=== PATIENT | female | born 1990 | race Caucasian/White ===

== ENCOUNTER 2016-10-27 19:32 | Emergency (ER) | payer OTHER ==
[2016-10-27] MEDS ORDERED: Ondansetron 4 MG/2 ML SDV IVPUSH ONE ×2 (20:13→22:08)
[2016-10-27] MEDS ORDERED: Sodium Chloride 0.9% 1,000 ML IV SCH (20:15)
[2016-10-27 20:32] VITALS: BP 117/74
--- NOTE | 2016-10-27 23:11 | EDM.PDOC ---
ED HPI GENERAL MEDICAL PROBLEM - General Chief Complaint: Abdominal Pain Stated Complaint: ABDOMINAL PAIN Time Seen by Provider: 10/27/16 20:11 Source of Information: Reports: Patient History Limitations: Reports: No Limitations - History of Present Illness INITIAL COMMENTS - FREE TEXT/NARRATIVE: History of present illness: [This patient is been having abdominal pain for about a week. Sodium been essentially worked up for this with abdominal pelvic CT and discovered to have thickening of the transverse colon which could be consistent with colitis. She is on Terrell to control her pain and tells me that her doctor has set her up with an appointment with a specialist towards the end of the month and that was the soonest that they could get her in. She is here with continued pain stating that the Terrell is not controlling her pain. She has some nausea with this for which she takes Zofran really has any vomiting no constipation or diarrhea or dysuria. She's having no fevers or chills.] Review of systems: As per history of present illness and below otherwise all systems reviewed and negative. Past medical history: As per history of present illness and as reviewed below otherwise noncontributory. Surgical history: As per history of present illness and as reviewed below otherwise noncontributory. Social history: No reported history of drug or alcohol abuse. Family history: As per history of present illness and as reviewed below otherwise noncontributory. Physical exam: HEENT: Atraumatic, normocephalic, pupils reactive, negative for conjunctival pallor or scleral icterus, mucous membranes moist, throat clear, neck supple, nontender, trachea midline. Lungs: Clear to auscultation, breath sounds equal bilaterally, chest nontender. Heart: S1S2, regular, negative for clicks, rubs, or JVD. Abdomen: Soft, nondistended, she does have some tenderness across her upper abdomen with no peritoneal signs. The pain is not well localized. Pelvis: Stable nontender. Genitourinary: Deferred. Rectal: Deferred. Extremities: Atraumatic, negative for cords or calf pain. Neurovascular unremarkable. Neuro: Awake, alert, oriented. Cranial nerves II through XII unremarkable. Cerebellum unremarkable. Motor and sensory unremarkable throughout. Exam nonfocal. Diagnostics: [CBC complete dental panel UA CRP amylase and lipase are essentially unremarkable once again she's had an abdominal pelvic CT just few days ago demonstrating the finding I discussed in history of present illness] Therapeutics: [She's received IV fluids while here and IV Zofran] Impression: [Colitis is a working diagnosis] Plan: [Were going to go ahead and send her out on Percocet 1-2 by mouth every 3-4 hours when necessary #20 and she will try to call her primary care doctor's office tomorrow. She says that her doctors on medication but she'll try Dr. gerber and see if they could expedite the referral to the specialist. She lives alone and drove herself here and didn't have anybody that can drive her home so we were limited on what we could do for her] Definitive disposition and diagnosis as appropriate pending reevaluation and review of above. Abdominal Pain Score (Numeric/FACES): 9 - Related Data Allergies Allergy/AdvReac Type Severity Reaction Status Date / Time apple [Apple] Allergy Severe anaphylaxis Verified 01/08/14 17:19 levofloxacin Allergy Severe anaphylaxis Verified 01/08/14 17:19 midazolam Allergy Intermediate Anxiety Verified 01/08/14 17:19 amoxicillin [Amoxicillin] Allergy Mild Hives Verified 01/08/14 17:19 Penicillins Allergy Mild Hives Verified 01/08/14 17:19 Sulfa (Sulfonamide Allergy Mild Hives Verified 01/08/14 17:19 Antibiotics) adhesive Allergy Rash Verified 01/08/14 17:19 diphenhydramine HCl Allergy unknown Verified 01/08/14 17:19 [From Benadryl] vancomycin AdvReac Intermediate Redness Verified 01/08/14 17:19 Home Meds: Home Meds Albuterol [Proventil Neb Soln] 3 ml INH TID PRN 03/10/13 [History] Citalopram [Citalopram HBr] 40 mg PO DAILY 03/10/13 [History] EPINEPHrine [Epipen 2-Dylan] 0.3 mg IM ASDIRECTED 03/10/13 [History] Hydroxychloroquine [Plaquenil] 400 mg PO DAILY 03/10/13 [History] Ibuprofen [Motrin] 800 mg PO TID 03/10/13 [History] Ipratropium/Albuterol Sulfate [Duoneb 0.5 MG-3 MG/3 ML] 3 ml INH Q4HR PRN [History] Methylphenidate HCl [Ritalin] 5 mg PO DAILY 03/10/13 [History] Montelukast [Singulair] 10 mg PO DAILY 03/10/13 [History] NIFEdipine [Adalat cc] 30 mg PO DAILY PRN 03/10/13 [History] Ondansetron [Zofran Odt] 8 mg PO Q8HR PRN 03/10/13 [History] Rizatriptan [Maxalt] 10 mg PO ASDIRECTED PRN 03/10/13 [History] traZODone 50 - 100 mg PO BEDTIME 03/10/13 [History] hydrOXYzine Pamoate [Vistaril] 25 - 50 mg PO Q8H PRN 08/11/13 [History] Ca Cmb No.1/Vit D3/B-6/FA/B12 [Vitamin D3 1,000 Unit] 1 tab PO BEDTIME 01/08/14 [History] Levocetirizine Dihydrochloride [Xyzal] 1 tab PO DAILY 01/11/16 [History] Folic Acid 1 mg PO DAILY 10/27/16 [History] Methotrexate Sodium [Methotrexate] 13 mg PO WEEKLY 10/27/16 [History] Past Medical History HEENT History: Reports: Other (See Below) Other HEENT History: tubes in ears Respiratory History: Reports: Asthma Musculoskeletal History: Reports: Arthritis Neurological History: Reports: Brain Injury, Headaches, Chronic, Migraines Psychiatric History: Reports: Anxiety - Infectious Disease History Infectious Disease History: Reports: Chicken Pox - Past Surgical History Musculoskeletal Surgical History: Reports: Other (See Below) Other Musculoskeletal Surgeries/Procedures:: FOOT SURGERY CHRONIC FOOT PAIN. Dermatological Surgical History: Reports: Other (See Below) Social & Family History - Tobacco Use Smoking Status *Q: Never Smoker Second Hand Smoke Exposure: No - Caffeine Use Caffeine Use: Reports: Coffee, Soda - Alcohol Use Days Per Week of Alcohol Use: 0 Number of Drinks Per Day: 1 Total Drinks Per Week: 0 - Recreational Drug Use Recreational Drug Use: No ED ROS GENERAL - Review of Systems Review Of Systems: ROS reveals no pertinent complaints other than HPI. ED EXAM, GI/ABD - Physical Exam Exam: See Below Course - Vital Signs Last Recorded V/S: Last Vital Signs Temp 37.0 C 10/27/16 20:49 Pulse 95 10/27/16 20:49 Resp 16 10/27/16 20:49 BP 117/74 10/27/16 20:49 Pulse Ox 100 10/27/16 20:49 - Orders/Labs/Meds Orders: Active Orders 24 hr Category Date Time Status Sodium Chloride 0.9% [Normal Saline] 1,000 ml Med 10/27/16 20:15 Active IV ASDIRECTED Medication Orders Sodium Chloride (Normal Saline) 1,000 mls @ 500 mls/hr IV ASDIRECTED NITIN Last Admin: 10/27/16 20:47 Dose: 500 mls/hr Labs: Laboratory Tests 10/27/16 10/27/16 10/27/16 Range/Units 20:45 20:45 20:45 WBC 8.9 (4.5-11.0) K/uL RBC 4.26 (3.30-5.50) M/uL Hgb 13.8 (12.0-15.0) g/dL Hct 39.0 (36.0-48.0) % MCV 92 (80-98) fL MCH 32 H (27-31) pg MCHC 35 (32-36) % Plt Count 305 (150-400) K/uL Neut % (Auto) 57 (36-66) % Lymph % (Auto) 33 (24-44) % [place] % (Auto) 8 H (2-6) % Eos % (Auto) 1 L (2-4) % Baso % (Auto) 1 (0-1) % Sodium 138 L (140-148) mmol/L Potassium 4.0 (3.6-5.2) mmol/L Chloride 105 (100-108) mmol/L Carbon Dioxide 25 (21-32) mmol/L Anion Gap 12.0 (5.0-14.0) mmol/L BUN 16 D (7-18) mg/dL Creatinine 0.9 (0.6-1.0) mg/dL Est Cr Clr Drug Dosing 76.98 mL/min Estimated GFR (MDRD) > 60 (>60) Glucose 85 (74-106) mg/dL Lactic Acid 0.8 (0.4-2.0) mmol/L Calcium 8.9 (8.5-10.1) mg/dL Total Bilirubin 0.6 (0.2-1.0) mg/dL AST 15 (15-37) U/L ALT 24 (12-78) U/L Alkaline Phosphatase 68 (46-116) U/L C-Reactive Protein 0.75 H (0.0-0.3) mg/dL Total Protein 7.4 (6.4-8.2) g/dL Albumin 3.8 (3.4-5.0) g/dL Globulin 3.6 H (2.3-3.5) g/dL Albumin/Globulin Ratio 1.1 L (1.2-2.2) Amylase 43 (25-115) U/L Lipase 192 (73-393) U/L Urine Color Urine Appearance Urine pH (4.5-8.0) Ur Specific [place] (1.008-1.030) Urine Protein (NEGATIVE) mg/dL Urine Glucose (UA) (NEGATIVE) mg/dL Urine Ketones (NEGATIVE) mg/dL Urine Occult Blood (NEGATIVE) Urine Nitrite (NEGATIVE) Urine Bilirubin (NEGATIVE) Urine Urobilinogen (NORMAL) mg/dL Ur Leukocyte Esterase (NEGATIVE) Urine RBC (0-5) Urine WBC (0-5) Ur Epithelial Cells Amorphous Sediment Urine Bacteria Urine Mucus 10/27/16 Range/Units 21:00 WBC (4.5-11.0) K/uL RBC (3.30-5.50) M/uL Hgb (12.0-15.0) g/dL Hct (36.0-48.0) % MCV (80-98) fL MCH (27-31) pg MCHC (32-36) % Plt Count (150-400) K/uL Neut % (Auto) (36-66) % Lymph % (Auto) (24-44) % [place] % (Auto) (2-6) % Eos % (Auto) (2-4) % Baso % (Auto) (0-1) % Sodium (140-148) mmol/L Potassium (3.6-5.2) mmol/L Chloride (100-108) mmol/L Carbon Dioxide (21-32) mmol/L Anion Gap (5.0-14.0) mmol/L BUN (7-18) mg/dL Creatinine (0.6-1.0) mg/dL Est Cr Clr Drug Dosing mL/min Estimated GFR (MDRD) (>60) Glucose (74-106) mg/dL Lactic Acid (0.4-2.0) mmol/L Calcium (8.5-10.1) mg/dL Total Bilirubin (0.2-1.0) mg/dL AST (15-37) U/L ALT (12-78) U/L Alkaline Phosphatase (46-116) U/L C-Reactive Protein (0.0-0.3) mg/dL Total Protein (6.4-8.2) g/dL Albumin (3.4-5.0) g/dL Globulin (2.3-3.5) g/dL Albumin/Globulin Ratio (1.2-2.2) Amylase (25-115) U/L Lipase (73-393) U/L Urine Color Yellow Urine Appearance Slightly cloudy Urine pH 6.0 (4.5-8.0) Ur Specific [place] 1.020 (1.008-1.030) Urine Protein Negative (NEGATIVE) mg/dL Urine Glucose (UA) Normal (NEGATIVE) mg/dL Urine Ketones Negative (NEGATIVE) mg/dL Urine Occult Blood Negative (NEGATIVE) Urine Nitrite Negative (NEGATIVE) Urine Bilirubin Negative (NEGATIVE) Urine Urobilinogen Normal (NORMAL) mg/dL Ur Leukocyte Esterase Negative (NEGATIVE) Urine RBC 0-5 (0-5) Urine WBC 0-5 (0-5) Ur Epithelial Cells Many Amorphous Sediment Not seen Urine Bacteria Moderate Urine Mucus Few Meds: Medications Generic Name Dose Route Start Last Admin Trade Name Freq PRN Reason Stop Dose Admin Sodium Chloride 1,000 mls @ 500 mls/hr 10/27/16 20:15 10/27/16 20:47 Normal Saline IV 500 mls/hr ASDIRECTED NITIN Administration Discontinued Medications Generic Name Dose Route Start Last Admin Trade Name Freq PRN Reason Stop Dose Admin Ondansetron HCl 4 mg 10/27/16 20:13 10/27/16 20:46 Zofran IVPUSH 10/27/16 20:14 4 mg ONETIME ONE Administration Ondansetron HCl 4 mg 10/27/16 22:08 10/27/16 22:34 Zofran IVPUSH 10/27/16 22:09 4 mg ONETIME ONE Administration Departure - Departure Time of Disposition: 23:09 Disposition: Home, Self-Care 01 Condition: Fair Clinical Impression: Colitis Abdominal pain Qualifiers: Abdominal location: upper abdomen, unspecified Qualified Code(s): R10.10 - Upper abdominal pain, unspecified - Discharge Information Forms: ED Department Discharge Additional Instructions: As we discussed call the clinic that your doctor works in and try to talk to your doctor's nurse to see if they can expedite the referral to the specialist. If your doctor's nurse is not in perhaps you could just asked to speak to the nursing tool supervisor for the clinic to see if she can help you. - My Orders Last 24 Hours: My Active Orders 10/27/16 20:15 Sodium Chloride 0.9% [Normal Saline] 1,000 ml IV ASDIRECTED - Assessment/Plan Last 24 Hours: My Active Orders 10/27/16 20:15 Sodium Chloride 0.9% [Normal Saline] 1,000 ml IV ASDIRECTED
== END 2016-10-27 23:30 | disposition home or self-care (01) ==
LOC: JP.ED 19:32
DX: K52.9 Noninfective gastroenteritis and colitis, unspecified (principal); J45.909 Unspecified asthma, uncomplicated; F41.9 Anxiety disorder, unspecified; G89.29 Other chronic pain; Z98.890 Other specified postprocedural states; Z79.899 Other long term (current) drug therapy; Z91.09 Other allergy status, other than to drugs and biological substances; Z88.1 Allergy status to other antibiotic agents; Z88.0 Allergy status to penicillin; Z88.2 Allergy status to sulfonamides; Z88.8 Allergy status to other drugs, medicaments and biological substances
CPT/HCPCS: 36415; 80053; 81001; 82150; 83605; 83690; 85025; 86140; 96361; 96374; 96376; 99284; J1642; J2405; J7040

== ENCOUNTER 2016-11-07 18:57 | Emergency (ER) | payer OTHER ==
--- NOTE | 2016-11-07 20:18 | EDM.PDOC ---
ED HPI GENERAL MEDICAL PROBLEM - General Chief Complaint: Abdominal Pain Stated Complaint: STOMACH PAIN/BLACK STOOLS Time Seen by Provider: 11/07/16 20:15 Source of Information: Reports: Patient History Limitations: Reports: No Limitations - History of Present Illness INITIAL COMMENTS - FREE TEXT/NARRATIVE: pt has severe lower abdomnal pain. She has had a black tarry stool abut 5 pm. Onset: Today Duration: Hour(s):, Other ( black tarry stool. ) Associated Symptoms: Reports: Nausea/Vomiting, Other ( tarry stools. ) abdominal pain Pain Score (Numeric/FACES): 9 - Related Data Allergies Allergy/AdvReac Type Severity Reaction Status Date / Time apple [Apple] Allergy Severe anaphylaxis Verified 11/07/16 19:50 levofloxacin Allergy Severe anaphylaxis Verified 11/07/16 19:50 midazolam Allergy Intermediate Anxiety Verified 11/07/16 19:50 amoxicillin [Amoxicillin] Allergy Mild Hives Verified 11/07/16 19:50 Penicillins Allergy Mild Hives Verified 11/07/16 19:50 Sulfa (Sulfonamide Allergy Mild Hives Verified 11/07/16 19:50 Antibiotics) adhesive Allergy Rash Verified 11/07/16 19:50 diphenhydramine HCl Allergy unknown Verified 11/07/16 19:50 [From Benadryl] vancomycin AdvReac Intermediate Redness Verified 11/07/16 19:50 Home Meds: Home Meds Albuterol [Proventil Neb Soln] 3 ml INH TID PRN 03/10/13 [History] Citalopram [Citalopram HBr] 40 mg PO DAILY 03/10/13 [History] EPINEPHrine [Epipen 2-Dylan] 0.3 mg IM ASDIRECTED 03/10/13 [History] Hydroxychloroquine [Plaquenil] 400 mg PO DAILY 03/10/13 [History] Ibuprofen [Motrin] 800 mg PO TID 03/10/13 [History] Ipratropium/Albuterol Sulfate [Duoneb 0.5 MG-3 MG/3 ML] 3 ml INH Q4HR PRN [History] Montelukast [Singulair] 10 mg PO DAILY 03/10/13 [History] NIFEdipine [Adalat cc] 30 mg PO DAILY PRN 03/10/13 [History] Ondansetron [Zofran Odt] 8 mg PO Q8HR PRN 03/10/13 [History] Rizatriptan [Maxalt] 10 mg PO ASDIRECTED PRN 03/10/13 [History] traZODone 50 - 100 mg PO BEDTIME 03/10/13 [History] hydrOXYzine Pamoate [Vistaril] 25 - 50 mg PO Q8H PRN 08/11/13 [History] Ca Cmb No.1/Vit D3/B-6/FA/B12 [Vitamin D3 1,000 Unit] 1 tab PO BEDTIME 01/08/14 [History] Levocetirizine Dihydrochloride [Xyzal] 5 mg PO DAILY 01/11/16 [History] Folic Acid 1 mg PO DAILY 10/27/16 [History] Methotrexate Sodium [Methotrexate] 13 mg PO WEEKLY 10/27/16 [History] Acetaminophen/oxyCODONE [Percocet 325-5 MG] 1 tab PO ASDIRECTED PRN 11/07/16 [ History] Hydrocodone/Acetaminophen [[place]eforest 10-325 Tablet] 1 each PO BEDTIME 11/07/16 [ History] Past Medical History HEENT History: Reports: Other (See Below) Other HEENT History: tubes in ears Respiratory History: Reports: Asthma Musculoskeletal History: Reports: Arthritis Neurological History: Reports: Brain Injury, Headaches, Chronic, Migraines Psychiatric History: Reports: Anxiety - Infectious Disease History Infectious Disease History: Reports: Chicken Pox - Past Surgical History HEENT Surgical History: Reports: None Musculoskeletal Surgical History: Reports: Other (See Below) Other Musculoskeletal Surgeries/Procedures:: FOOT SURGERY CHRONIC FOOT PAIN. Social & Family History - Tobacco Use Smoking Status *Q: Never Smoker Second Hand Smoke Exposure: No - Caffeine Use Caffeine Use: Reports: Coffee, Soda - Alcohol Use Days Per Week of Alcohol Use: 0 Number of Drinks Per Day: 1 Total Drinks Per Week: 0 - Recreational Drug Use Recreational Drug Use: No ED ROS GENERAL - Review of Systems Review Of Systems: See Below Constitutional: Reports: No Symptoms HEENT: Reports: No Symptoms Respiratory: Reports: No Symptoms Cardiovascular: Reports: No Symptoms Endocrine: Reports: No Symptoms GI/Abdominal: Reports: Constipation, Nausea, Other ( rt sided abdomanal pain. ) : Reports: No Symptoms Musculoskeletal: Reports: No Symptoms Skin: Reports: No Symptoms ED EXAM, GI/ABD - Physical Exam Exam: See Below Text/Narrative:: Pt arrived with pain in her rt lower abdoman, She has been having hard small stools. She had a loose stool earlier that she thought was black. Exam Limited By: No Limitations General Appearance: Alert, Anxious, Mild Distress, Other (pt is nauseated. ) Ears: Normal TMs Nose: Normal Inspection Throat/Mouth: Normal Inspection Head: Atraumatic Neck: Normal Inspection Respiratory/Chest: No Respiratory Distress Cardiovascular: Regular Rate, Rhythm GI/Abdominal Exam: Tender, Other (pt has tenderness in the rt lower abdoman. ) (Female) Exam: Deferred Rectal (Female) Exam: Other (pt had hard brownish stool in the rectum. ) Back Exam: Normal Inspection Extremities: Normal Inspection Neurological: Alert, Oriented, Normal Cognition Psychiatric: Anxious Course - Vital Signs Last Recorded V/S: Last Vital Signs Temp 37.1 C 11/07/16 21:37 Pulse 82 11/07/16 21:37 Resp 16 11/07/16 21:37 BP 138/60 11/07/16 21:37 Pulse Ox 99 11/07/16 21:37 - Orders/Labs/Meds Labs: Laboratory Tests 11/07/16 11/07/16 11/07/16 Range/Units 20:27 20:27 20:27 WBC 7.0 (4.5-11.0) K/uL RBC 4.23 (3.30-5.50) M/uL Hgb 13.9 (12.0-15.0) g/dL Hct 38.6 (36.0-48.0) % MCV 91 (80-98) fL MCH 33 H (27-31) pg MCHC 36 (32-36) % Plt Count 273 (150-400) K/uL Neut % (Auto) 53 (36-66) % Lymph % (Auto) 38 (24-44) % [place] % (Auto) 7 H (2-6) % Eos % (Auto) 1 L (2-4) % Baso % (Auto) 1 (0-1) % Sodium 143 (140-148) mmol/L Potassium 3.8 (3.6-5.2) mmol/L Chloride 110 H (100-108) mmol/L Carbon Dioxide 22 (21-32) mmol/L Anion Gap 14.8 H (5.0-14.0) mmol/L BUN 11 (7-18) mg/dL Creatinine 0.9 (0.6-1.0) mg/dL Est Cr Clr Drug Dosing 76.98 mL/min Estimated GFR (MDRD) > 60 (>60) Glucose 84 (74-106) mg/dL Calcium 8.6 (8.5-10.1) mg/dL Total Bilirubin 0.6 (0.2-1.0) mg/dL AST 17 (15-37) U/L ALT 30 (12-78) U/L Alkaline Phosphatase 61 (46-116) U/L C-Reactive Protein 0.22 (0.0-0.3) mg/dL Total Protein 7.2 (6.4-8.2) g/dL Albumin 3.7 (3.4-5.0) g/dL Globulin 3.5 (2.3-3.5) g/dL Albumin/Globulin Ratio 1.1 L (1.2-2.2) Urine Color Urine Appearance Urine pH (4.5-8.0) Ur Specific [place] (1.008-1.030) Urine Protein (NEGATIVE) mg/dL Urine Glucose (UA) (NEGATIVE) mg/dL Urine Ketones (NEGATIVE) mg/dL Urine Occult Blood (NEGATIVE) Urine Nitrite (NEGATIVE) Urine Bilirubin (NEGATIVE) Urine Urobilinogen (NORMAL) mg/dL Ur Leukocyte Esterase (NEGATIVE) Urine RBC (0-5) Urine WBC (0-5) Ur Epithelial Cells Amorphous Sediment Urine Bacteria Urine Mucus 11/07/16 Range/Units 20:32 WBC (4.5-11.0) K/uL RBC (3.30-5.50) M/uL Hgb (12.0-15.0) g/dL Hct (36.0-48.0) % MCV (80-98) fL MCH (27-31) pg MCHC (32-36) % Plt Count (150-400) K/uL Neut % (Auto) (36-66) % Lymph % (Auto) (24-44) % [place] % (Auto) (2-6) % Eos % (Auto) (2-4) % Baso % (Auto) (0-1) % Sodium (140-148) mmol/L Potassium (3.6-5.2) mmol/L Chloride (100-108) mmol/L Carbon Dioxide (21-32) mmol/L Anion Gap (5.0-14.0) mmol/L BUN (7-18) mg/dL Creatinine (0.6-1.0) mg/dL Est Cr Clr Drug Dosing mL/min Estimated GFR (MDRD) (>60) Glucose (74-106) mg/dL Calcium (8.5-10.1) mg/dL Total Bilirubin (0.2-1.0) mg/dL AST (15-37) U/L ALT (12-78) U/L Alkaline Phosphatase (46-116) U/L C-Reactive Protein (0.0-0.3) mg/dL Total Protein (6.4-8.2) g/dL Albumin (3.4-5.0) g/dL Globulin (2.3-3.5) g/dL Albumin/Globulin Ratio (1.2-2.2) Urine Color Yellow Urine Appearance Clear Urine pH 5.0 (4.5-8.0) Ur Specific [place] 1.025 (1.008-1.030) Urine Protein Negative (NEGATIVE) mg/dL Urine Glucose (UA) Normal (NEGATIVE) mg/dL Urine Ketones Negative (NEGATIVE) mg/dL Urine Occult Blood Negative (NEGATIVE) Urine Nitrite Negative (NEGATIVE) Urine Bilirubin Negative (NEGATIVE) Urine Urobilinogen Normal (NORMAL) mg/dL Ur Leukocyte Esterase Negative (NEGATIVE) Urine RBC 0-5 (0-5) Urine WBC 0-5 (0-5) Ur Epithelial Cells Moderate Amorphous Sediment Rare Urine Bacteria Few Urine Mucus Few Meds: Medications Discontinued Medications Generic Name Dose Route Start Last Admin Trade Name Joshq PRN Reason Stop Dose Admin Heparin Sodium (Porcine) 500 units 11/08/16 01:50 11/08/16 01:57 Heparin Lock Flush 100 Units/Ml FLUSH 11/08/16 01:51 500 units ASDIRECTED ONE Administration Sodium Chloride 1,000 mls @ 500 mls/hr 11/07/16 21:00 11/07/16 21:12 Normal Saline IV 500 mls/hr ASDIRECTED NITIN Administration Sodium Chloride 1,000 mls @ 500 mls/hr 11/07/16 23:45 11/07/16 23:53 Normal Saline IV 500 mls/hr ASDIRECTED NITIN Administration Sodium Chloride 85 mls @ 3 mls/sec 11/08/16 00:31 11/08/16 00:47 Normal Saline IV 11/08/16 00:32 3 mls/sec ONETIME ONE Administration Ibuprofen 600 mg 11/08/16 01:31 11/08/16 01:39 Motrin PO 11/08/16 01:32 600 mg ONETIME ONE Administration Iopamidol 150 ml 11/08/16 00:45 11/08/16 00:47 Isovue-300 (61%) IV 150 ml . DIRECTED NITIN Administration Lorazepam 0.25 mg 11/08/16 01:14 11/08/16 01:21 Ativan IVPUSH 11/08/16 01:15 0.25 mg ONETIME ONE Administration Magnesium Citrate 296 ml 11/07/16 21:28 11/07/16 21:51 Citrate Of Magnesia PO 11/07/16 21:29 296 ml ONETIME ONE Administration Ondansetron HCl 4 mg 11/07/16 20:59 11/07/16 21:12 Zofran IVPUSH 11/07/16 21:00 4 mg ONETIME ONE Administration Ondansetron HCl 4 mg 11/07/16 22:20 11/07/16 22:27 Zofran IVPUSH 11/07/16 22:21 4 mg ONETIME ONE Administration Prochlorperazine Edisylate 10 mg 11/08/16 00:10 11/08/16 00:16 Compazine IVPUSH 11/08/16 00:11 10 mg ONETIME ONE Administration Sodium Chloride 10 ml 11/08/16 00:31 11/08/16 00:47 Saline Flush FLUSH 10 ml ONETIME PRN Administration PER RADIOLOGY PROTOCOL - Re-Assessments/Exams Free Text/Narrative Re-Assessment/Exam: 11/08/16 01:34 pt had a cat scan of the abdoman which did not show sig thickening and did not show other abnormalities. 11/11/16 20:30 stool for occult blood was neg. Her cat showed evidence of constipation. She was given mag citrate and she was given a tap water enema. She had a large result. She had less pain after that. Departure - Departure Time of Disposition: 01:35 Disposition: Home, Self-Care 01 Condition: Fair Clinical Impression: Constipation, Recurrent lower abdominal pain - Discharge Information Instructions: Abdominal Pain, Adult, Constipation, Adult Referrals: Leah Agrawal PA [Primary Care Provider] - Forms: ED Department Discharge Care Plan Goals: cont same meds, keep appt in Wednesday, Use prunes and gummy fibers to keep stools regular, push fluiids.
[2016-11-07] MEDS ORDERED: Ondansetron 4 MG/2 ML SDV IVPUSH ONE ×2 (20:59→22:20)
[2016-11-07] MEDS ORDERED: Sodium Chloride 0.9% 1,000 ML IV SCH ×2 (21:00→23:45)
[2016-11-07] MEDS ORDERED: Magnesium Citrate Solution 296 ML Bottle PO ONE (21:28)
[2016-11-07 21:38] VITALS: BP 138/60
[2016-11-08] MEDS ORDERED: Prochlorperazine 10 MG/2 ML SDV IVPUSH ONE (00:10)
[2016-11-08] MEDS ORDERED: Sodium Chloride 0.9% 10 ML Syringe FLUSH PRN (00:31)
[2016-11-08] MEDS ORDERED: Iopamidol 612 MG/ML 150 ML Bottle IV SCH (00:45)
[2016-11-08] MEDS ORDERED: LORazepam 2 MG/ML MDV IVPUSH ONE (01:14)
[2016-11-08] MEDS ORDERED: Ibuprofen 600 MG Tab PO ONE (01:31)
--- NOTE | 2016-11-09 08:57 | CR ---
Abdomen Series w Chest 1V INDICATION: pain in abdomen. COMPARISON: 07/13/2012 FINDINGS: 5 views. No free air or abnormal air-fluid levels. No signs of bowel obstruction. No abno rmal calculi seen. IMPRESSION: Nothing acute.
== END 2016-11-08 02:02 | disposition home or self-care (01) ==
LOC: JP.ED 18:57
DX: K59.00 Constipation, unspecified (principal); J45.909 Unspecified asthma, uncomplicated; F41.9 Anxiety disorder, unspecified; M19.90 Unspecified osteoarthritis, unspecified site; Z98.890 Other specified postprocedural states; Z79.899 Other long term (current) drug therapy; Z91.018 Allergy to other foods; Z88.1 Allergy status to other antibiotic agents; Z88.2 Allergy status to sulfonamides; Z91.09 Other allergy status, other than to drugs and biological substances; Z88.8 Allergy status to other drugs, medicaments and biological substances
CPT/HCPCS: 36415; 74022; 74177; 80053; 81001; 82272; 85025; 86140; 96361; 96374; 96375; 96376; 99285; A9270; J0780; J1642; J2060; J2405; J7030; J7040; J7050

== ENCOUNTER 2016-12-11 19:34 | Emergency (ER) | payer OTHER ==
[2016-12-11] MEDS ORDERED: Albuterol 0.5% 5 MG/ML Neb Soln 20 ML Bottle NEB ONE (20:13)
[2016-12-11] MEDS ORDERED: Albuterol 0.083% 2.5 MG/3 ML Neb Soln NEB ONE (20:24)
--- NOTE | 2016-12-11 21:08 | EDM.PDOC ---
ED HPI GENERAL MEDICAL PROBLEM - General Chief Complaint: Asthma Stated Complaint: CHEST PAINS Source of Information: Reports: Patient History Limitations: Reports: No Limitations - History of Present Illness INITIAL COMMENTS - FREE TEXT/NARRATIVE: Patient complains of chest tightness and dyspnea for the last few hours, associated with a sore throat. She reports having a non-productive cough since y-day, without fever/chills. She requests a prescription for a MDI and a rapid strep test. She has a prior H/O asthma, but has never required admission. She has been treated with steroids in the past. She denies leg pain/swelling, trauma, prolonged immobilization. Onset: Today Location: Reports: Chest. Denies: Lower Extremity, Left, Lower Extremity, Right Throat Pain Score (Numeric/FACES): 1 - Related Data Allergies Allergy/AdvReac Type Severity Reaction Status Date / Time apple [Apple] Allergy Severe anaphylaxis Verified 11/07/16 19:50 levofloxacin Allergy Severe anaphylaxis Verified 11/07/16 19:50 midazolam Allergy Intermediate Anxiety Verified 11/07/16 19:50 amoxicillin [Amoxicillin] Allergy Mild Hives Verified 11/07/16 19:50 Penicillins Allergy Mild Hives Verified 11/07/16 19:50 Sulfa (Sulfonamide Allergy Mild Hives Verified 11/07/16 19:50 Antibiotics) adhesive Allergy Rash Verified 11/07/16 19:50 diphenhydramine HCl Allergy unknown Verified 11/07/16 19:50 [From Benadryl] vancomycin AdvReac Intermediate Redness Verified 11/07/16 19:50 Home Meds: Home Meds Albuterol [Proventil Neb Soln] 3 ml INH TID PRN 03/10/13 [History] Citalopram [Citalopram HBr] 40 mg PO DAILY 03/10/13 [History] EPINEPHrine [Epipen 2-Dylan] 0.3 mg IM ASDIRECTED 03/10/13 [History] Hydroxychloroquine [Plaquenil] 400 mg PO DAILY 03/10/13 [History] Ibuprofen [Motrin] 800 mg PO TID 03/10/13 [History] Ipratropium/Albuterol Sulfate [Duoneb 0.5 MG-3 MG/3 ML] 3 ml INH Q4HR PRN [History] Montelukast [Singulair] 10 mg PO DAILY 03/10/13 [History] NIFEdipine [Adalat cc] 30 mg PO DAILY PRN 03/10/13 [History] Ondansetron [Zofran Odt] 8 mg PO Q8HR PRN 03/10/13 [History] Rizatriptan [Maxalt] 10 mg PO ASDIRECTED PRN 03/10/13 [History] traZODone 50 - 100 mg PO BEDTIME 03/10/13 [History] hydrOXYzine Pamoate [Vistaril] 25 - 50 mg PO Q8H PRN 08/11/13 [History] Ca Cmb No.1/Vit D3/B-6/FA/B12 [Vitamin D3 1,000 Unit] 1 tab PO BEDTIME 01/08/14 [History] Levocetirizine Dihydrochloride [Xyzal] 5 mg PO DAILY 01/11/16 [History] Folic Acid 1 mg PO DAILY 10/27/16 [History] Methotrexate Sodium [Methotrexate] 13 mg PO WEEKLY 10/27/16 [History] Acetaminophen/oxyCODONE [Percocet 325-5 MG] 1 tab PO ASDIRECTED PRN 11/07/16 [ History] Hydrocodone/Acetaminophen [[place] 10-325 Tablet] 1 each PO BEDTIME 11/07/16 [ History] Past Medical History HEENT History: Reports: Other (See Below) Other HEENT History: tubes in ears Respiratory History: Reports: Asthma Musculoskeletal History: Reports: Arthritis Neurological History: Reports: Brain Injury, Headaches, Chronic, Migraines Psychiatric History: Reports: Anxiety - Infectious Disease History Infectious Disease History: Reports: Chicken Pox - Past Surgical History GI Surgical History: Reports: Colonoscopy Musculoskeletal Surgical History: Reports: Other (See Below) Other Musculoskeletal Surgeries/Procedures:: FOOT SURGERY CHRONIC FOOT PAIN. Social & Family History - Tobacco Use Smoking Status *Q: Unknown Ever Smoked Second Hand Smoke Exposure: No - Caffeine Use Caffeine Use: Reports: Coffee, Soda - Alcohol Use Days Per Week of Alcohol Use: 0 Number of Drinks Per Day: 1 Total Drinks Per Week: 0 - Recreational Drug Use Recreational Drug Use: No Course - Vital Signs Last Recorded V/S: Last Vital Signs Temp 36.7 C 12/11/16 20:00 Pulse 102 H 12/11/16 20:00 Resp 18 12/11/16 20:00 BP 126/73 12/11/16 20:00 Pulse Ox 99 12/11/16 20:00 - Orders/Labs/Meds Orders: Active Orders 24 hr Category Date Time Status EKG Documentation Completion [RC] ASDIRECTED Care 12/11/16 20:15 Active RT Aerosol Therapy [RC] ASDIRECTED Care 12/11/16 20:13 Active RT Aerosol Therapy [RC] ASDIRECTED Care 12/11/16 20:24 Active CULTURE STREP A CONFIRMATION [RM] Stat Lab 12/11/16 20:34 Results STREP SCRN A RAPID W CULT CONF [RM] Stat Lab 12/11/16 20:34 Results EKG 12 Lead [EK] Routine Ther 12/11/16 20:14 Ordered Meds: Medications Discontinued Medications Generic Name Dose Route Start Last Admin Trade Name Freq PRN Reason Stop Dose Admin Albuterol 10 mg 12/11/16 20:13 12/11/16 20:29 Proventil Neb Aminan [facility] 12/11/16 20:14 Not Given ONETIME ONE Albuterol 2.5 mg 12/11/16 20:24 12/11/16 20:29 Proventil Neb Soln NEB 12/11/16 20:25 2.5 mg ONETIME ONE Administration Dexamethasone 16 mg 12/11/16 21:15 Dexamethasone PO 12/11/16 21:16 ONETIME ONE Departure - Departure Time of Disposition: 21:06 Disposition: Home, Self-Care 01 Clinical Impression: Asthma, Acute pharyngitis - Discharge Information Instructions: Asthma, Adult, [id number], How to Use an Inhaler, [id number] Referrals: Leah Agrawal PA [Primary Care Provider] - Forms: ED Department Discharge Additional Instructions: See your regular doctor. Acetaminophen/Tylenol for pain. Use your inhaler as needed, but contact your physician or return to the emergency department if you need to use it more than every four hours. Return if shortness of breath worsens. - My Orders Last 24 Hours: My Active Orders 12/11/16 20:13 RT Aerosol Therapy [RC] ASDIRECTED 12/11/16 20:14 EKG 12 Lead [EK] Routine 12/11/16 20:15 EKG Documentation Completion [RC] ASDIRECTED 12/11/16 20:24 RT Aerosol Therapy [RC] ASDIRECTED 09/15/17 20:34 CULTURE STREP A CONFIRMATION [RM] Stat STREP SCRN A RAPID W CULT CONF [RM] Stat - Assessment/Plan Last 24 Hours: My Active Orders 12/11/16 20:13 RT Aerosol Therapy [RC] ASDIRECTED 12/11/16 20:14 EKG 12 Lead [EK] Routine 12/11/16 20:15 EKG Documentation Completion [RC] ASDIRECTED 12/11/16 20:24 RT Aerosol Therapy [RC] ASDIRECTED 12/11/16 20:34 CULTURE STREP A CONFIRMATION [RM] Stat STREP SCRN A RAPID W CULT CONF [RM] Stat Assessment:: Acute asthma attack. Given pharyngitis as concomitant sx, tx w/ dexamethasone PO in ED.
[2016-12-11] MEDS ORDERED: Dexamethasone 4 MG Tab PO ONE (21:15)
[2016-12-11] MEDS ORDERED: Dexamethasone 4 MG/ML SDV ONE (21:24)
[2016-12-11 21:33] VITALS: BP 117/80
== END 2016-12-11 21:39 | disposition home or self-care (01) ==
LOC: JP.ED 19:34 → EEVIPCON 19:34 → JP.ED 21:39
DX: J45.909 Unspecified asthma, uncomplicated (principal); J02.9 Acute pharyngitis, unspecified; F41.9 Anxiety disorder, unspecified; Z88.1 Allergy status to other antibiotic agents; Z88.0 Allergy status to penicillin; Z88.2 Allergy status to sulfonamides; Z88.8 Allergy status to other drugs, medicaments and biological substances; Z79.899 Other long term (current) drug therapy
CPT/HCPCS: 87081; 87430; 93005; 99285; J1100

== ENCOUNTER 2016-12-13 13:05 | Emergency (ER) | payer OTHER ==
[2016-12-13 13:18] VITALS: BP 140/95
[2016-12-13] MEDS ORDERED: Albuterol/Ipratropium 3.0-0.5 MG/3 ML Neb Soln NEB ONE (13:34)
--- NOTE | 2016-12-13 13:41 | EDM.PDOC ---
ED HPI GENERAL MEDICAL PROBLEM - General Chief Complaint: Respiratory Problem Stated Complaint: TROUBLES BREATHING Time Seen by Provider: 12/13/16 13:25 Source of Information: Reports: Patient History Limitations: Reports: No Limitations - History of Present Illness INITIAL COMMENTS - FREE TEXT/NARRATIVE: Suzy presents today with complaints of shortness of breath while at work. She states she was here Wednesday for an asthma attack, was given an inhaler and steroid and has not improved. She has used her inhaler as directed. Suzy states she is coughing frequently. She denies productive cough. She denies fever, chills, vomiting, or change in bowel and bladder problems. Headache Pain Score (Numeric/FACES): 3 - Related Data Allergies Allergy/AdvReac Type Severity Reaction Status Date / Time apple [Apple] Allergy Severe anaphylaxis Verified 11/07/16 19:50 levofloxacin Allergy Severe anaphylaxis Verified 11/07/16 19:50 midazolam Allergy Intermediate Anxiety Verified 11/07/16 19:50 amoxicillin [Amoxicillin] Allergy Mild Hives Verified 11/07/16 19:50 Penicillins Allergy Mild Hives Verified 11/07/16 19:50 Sulfa (Sulfonamide Allergy Mild Hives Verified 11/07/16 19:50 Antibiotics) adhesive Allergy Rash Verified 11/07/16 19:50 diphenhydramine HCl Allergy unknown Verified 11/07/16 19:50 [From Benadryl] vancomycin AdvReac Intermediate Redness Verified 11/07/16 19:50 Home Meds: Home Meds Albuterol [Proventil Neb Soln] 3 ml INH TID PRN 03/10/13 [History] Citalopram [Citalopram HBr] 40 mg PO DAILY 03/10/13 [History] EPINEPHrine [Epipen 2-Dylan] 0.3 mg IM ASDIRECTED 03/10/13 [History] Hydroxychloroquine [Plaquenil] 400 mg PO DAILY 03/10/13 [History] Ibuprofen [Motrin] 800 mg PO TID 03/10/13 [History] Ipratropium/Albuterol Sulfate [Duoneb 0.5 MG-3 MG/3 ML] 3 ml INH Q4HR PRN [History] Montelukast [Singulair] 10 mg PO DAILY 03/10/13 [History] NIFEdipine [Adalat cc] 30 mg PO DAILY PRN 03/10/13 [History] Ondansetron [Zofran Odt] 8 mg PO Q8HR PRN 03/10/13 [History] Rizatriptan [Maxalt] 10 mg PO ASDIRECTED PRN 03/10/13 [History] traZODone 50 - 100 mg PO BEDTIME 03/10/13 [History] hydrOXYzine Pamoate [Vistaril] 25 - 50 mg PO Q8H PRN 08/11/13 [History] Ca Cmb No.1/Vit D3/B-6/FA/B12 [Vitamin D3 1,000 Unit] 1 tab PO BEDTIME 01/08/14 [History] Levocetirizine Dihydrochloride [Xyzal] 5 mg PO DAILY 01/11/16 [History] Folic Acid 1 mg PO DAILY 10/27/16 [History] Methotrexate Sodium [Methotrexate] 13 mg PO WEEKLY 10/27/16 [History] Acetaminophen/oxyCODONE [Percocet 325-5 MG] 1 tab PO ASDIRECTED PRN 11/07/16 [ History] Hydrocodone/Acetaminophen [[place] 10-325 Tablet] 1 each PO BEDTIME 11/07/16 [ History] Past Medical History HEENT History: Reports: Other (See Below) Other HEENT History: tubes in ears Respiratory History: Reports: Asthma Musculoskeletal History: Reports: Arthritis Neurological History: Reports: Brain Injury, Headaches, Chronic, Migraines Psychiatric History: Reports: Anxiety - Infectious Disease History Infectious Disease History: Reports: Chicken Pox - Past Surgical History GI Surgical History: Reports: Colonoscopy Musculoskeletal Surgical History: Reports: Other (See Below) Other Musculoskeletal Surgeries/Procedures:: FOOT SURGERY CHRONIC FOOT PAIN. Dermatological Surgical History: Reports: Other (See Below) Social & Family History - Tobacco Use Smoking Status *Q: Never Smoker Second Hand Smoke Exposure: No - Caffeine Use Caffeine Use: Reports: Coffee, Energy Drinks, Soda - Alcohol Use Days Per Week of Alcohol Use: 0 Number of Drinks Per Day: 1 Total Drinks Per Week: 0 - Recreational Drug Use Recreational Drug Use: No ED ROS GENERAL - Review of Systems Review Of Systems: See Below Constitutional: Denies: Fever, Chills, Malaise, Weakness HEENT: Denies: Ear Discharge, Ear Pain, Nose Pain, Rhinitis, Sinus Problem, Throat Pain, Throat Swelling, Vertigo, Vision Change Respiratory: Reports: Shortness of Breath, Wheezing, Cough, Other (She denies productive cough and syncope. ). Denies: Pleuritic Chest Pain, Sputum, Hemoptysis Cardiovascular: Denies: Chest Pain, Blood Pressure Problem, Dyspnea on Exertion , Edema, Lightheadedness, Palpitations, Syncope Endocrine: Reports: No Symptoms GI/Abdominal: Reports: No Symptoms : Reports: No Symptoms Musculoskeletal: Reports: No Symptoms Skin: Reports: No Symptoms Neurological: Reports: No Symptoms Psychiatric: Reports: No Symptoms Hematologic/Lymphatic: Reports: No Symptoms Immunologic: Reports: No Symptoms ED EXAM, GENERAL - Physical Exam Exam: See Below General Appearance: Alert, WD/WN, No Apparent Distress Eye Exam: Bilateral Eye: EOMI, Normal Fundi, Normal Inspection, PERRL Ears: Normal External Exam, Normal Canal, Hearing Grossly Normal, Normal TMs Ear Exam: Bilateral Ear: Auricle Normal, Canal Normal, TM normal Nose: Normal Inspection, Normal Mucosa, Clear Rhinorrhea Throat/Mouth: Normal Inspection, Normal Lips, Normal Teeth, Normal Gums, Normal Oropharynx, Normal Voice, No Airway Compromise Head: Atraumatic, Normocephalic Neck: Normal Inspection, Supple, Non-Tender, Full Range of Motion Respiratory/Chest: No Respiratory Distress, Lungs Clear, No Accessory Muscle Use , Chest Non-Tender, Decreased Breath Sounds Cardiovascular: Normal Peripheral Pulses, Regular Rate, Rhythm, No Edema, No Murmur, No Rub Peripheral Pulses: 2+: Radial (L), Radial (R), Dorsalis Pedis (L), Dorsalis Pedis (R) GI/Abdominal: Normal Bowel Sounds, Soft, Non-Tender, No Distention, No Mass Back Exam: Normal Inspection, Full Range of Motion. No: CVA Tenderness (R), CVA Tenderness (L) Extremities: Normal Inspection, Normal Range of Motion, Non-Tender, No Pedal Edema, Normal Capillary Refill Neurological: Alert, Oriented, CN II-XII Intact, Normal Cognition, Normal Gait, No Motor/Sensory Deficits Psychiatric: Normal Affect, Normal Mood Skin Exam: Warm, Dry, Intact, Normal Color, No Rash Lymphatic: No Adenopathy Course - Vital Signs Last Recorded V/S: Last Vital Signs Temp 36.5 C 12/13/16 13:17 Pulse 88 12/13/16 13:17 Resp 18 12/13/16 13:17 BP 140/95 H 12/13/16 13:17 Pulse Ox 99 12/13/16 13:17 - Orders/Labs/Meds Orders: Active Orders 24 hr Category Date Time Status RT Aerosol Therapy [RC] ASDIRECTED Care 12/13/16 13:34 Active Chest 2V [CR] Stat Exams 12/13/16 13:43 Taken Meds: Medications Discontinued Medications Generic Name Dose Route Start Last Admin Trade Name [place] PRN Reason Stop Dose Admin Albuterol/Ipratropium 3 ml 12/13/16 13:34 12/13/16 13:38 Duoneb 3.0-0.5 Mg/3 Ml NEB 12/13/16 13:35 3 ml ONETIME ONE Administration - Radiology Interpretation Free Text/Narrative:: Chest x-ray completed, wet read with no acute findings. Radiologist read pending. Departure - Departure Time of Disposition: 14:33 Disposition: Home, Self-Care 01 Condition: Good Clinical Impression: Bronchitis - Discharge Information Instructions: Shortness of Breath, [id number] Referrals: Leah Agrawal PA [Primary Care Provider] - Forms: ED Department Discharge Additional Instructions: You are suffering from bronchitis. History of rheumatoid arthritis. Use the albuterol inhaler as directed. Take prednisone 40mg by mouth daily for 5 days. Take azithromycin 500mg by mouth today then 250mg by mouth once a day the next four days. Keep appointment with Kristin JACINTO this . Return for worsening, issues or concerns. - My Orders Last 24 Hours: My Active Orders 12/13/16 13:34 RT Aerosol Therapy [RC] ASDIRECTED 12/13/16 13:43 Chest 2V [CR] Stat - Assessment/Plan Last 24 Hours: My Active Orders 12/13/16 13:34 RT Aerosol Therapy [RC] ASDIRECTED 12/13/16 13:43 Chest 2V [CR] Stat Assessment:: Bronchitis Plan: You are suffering from bronchitis. History of rheumatoid arthritis. Use the albuterol inhaler as directed. Take prednisone 40mg by mouth daily for 5 days. Take azithromycin 500mg by mouth today then 250mg by mouth once a day the next four days. Keep appointment with Kristin JACINTO this . Return for worsening, issues or concerns.
--- NOTE | 2016-12-14 09:19 | CR ---
Chest 2V INDICATION: shortness of breath FINDINGS: Left subclavian Port-A-Cath with tip in the mid SVC. Shallow inspiration. Chest otherwise n egative.
== END 2016-12-13 14:51 | disposition home or self-care (01) ==
LOC: JP.ED 13:05
DX: J40 Bronchitis, not specified as acute or chronic (principal); M19.90 Unspecified osteoarthritis, unspecified site; Z98.890 Other specified postprocedural states; Z87.820 Personal history of traumatic brain injury; Z79.899 Other long term (current) drug therapy; Z88.0 Allergy status to penicillin; Z88.1 Allergy status to other antibiotic agents; Z88.2 Allergy status to sulfonamides; Z88.8 Allergy status to other drugs, medicaments and biological substances; Z91.048 Other nonmedicinal substance allergy status; Z91.018 Allergy to other foods
CPT/HCPCS: 71020; 94640; 99285; J7620

== ENCOUNTER 2017-01-20 17:10 | Emergency (ER) | payer OTHER ==
[2017-01-20 18:27] VITALS: BP 133/85
[2017-01-20] MEDS ORDERED: Prochlorperazine 5 MG in Sodium Chloride 0.9% 50 ML IV ONE (18:48)
[2017-01-20] MEDS ORDERED: Sodium Chloride 0.9% 1,000 ML IV SCH (19:00)
--- NOTE | 2017-01-20 19:20 | EDM.PDOC ---
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 All day yesterday and today she's had nausea multiple episodes of vomiting and continuing pain. While in the waiting room her pain wrap from the right lower quadrant around the right side into the right lower back. Had 3 loose stools yesterday, 3 formed stools today. Has not had any lightheadedness or fainting, was able to drive herself here although some discomfort with walking. No fever or chills No urinary symptoms Seen in emergency on October 27 with abdominal pain and again on November 07. She was also seen in the office at the end of September with abdominal pain. CT scan October 22 was suggestive of transverse colon colitis and on November 07 was suggestive of sigmoid colitis but findings were mild. Pain associated with this was more in the left upper quadrant. She's was referred to [facility] engineer in [place], her left lower quadrant pain has improved although it is still present but milder. She did phone them earlier today; they told her to get checked because her pain in the right side was new and might be something else. The [facility] office told her that colitis was likely better. She missed work yesterday and today. Pain is bad enough to make her cry at home. Never , she is on Depo-Provera Was on prochlorperazine for nausea from the g[facility], and this has been discontinued, she is not on pain medication, she has used ondansetron but it doesn't help her nausea. History of rheumatoid arthritis, on methotrexate She has a port because of difficult IV access in the past, but it's quite old and cannot be used for contrast Right Middle Abdominal Pain Score (Numeric/FACES): 9 - Related Data Allergies Allergy/AdvReac Type Severity Reaction Status Date / Time apple [Apple] Allergy Severe anaphylaxis Verified 01/20/17 18:28 levofloxacin Allergy Severe anaphylaxis Verified 01/20/17 18:28 midazolam Allergy Intermediate Anxiety Verified 01/20/17 18:28 amoxicillin [Amoxicillin] Allergy Mild Hives Verified 01/20/17 18:28 Penicillins Allergy Mild Hives Verified 01/20/17 18:28 Sulfa (Sulfonamide Allergy Mild Hives Verified 01/20/17 18:28 Antibiotics) adhesive Allergy Rash Verified 01/20/17 18:28 diphenhydramine HCl Allergy unknown Verified 01/20/17 18:28 [From Benadryl] peanut Allergy Abdominal Verified 01/20/17 18:28 Cramps vancomycin AdvReac Intermediate Redness Verified 01/20/17 18:28 Home Meds: Home Meds Albuterol [Proventil Neb Soln] 3 ml INH TID PRN 03/10/13 [History] Citalopram [Citalopram HBr] 40 mg PO DAILY 03/10/13 [History] EPINEPHrine [Epipen 2-Dylan] 0.3 mg IM ASDIRECTED 03/10/13 [History] Hydroxychloroquine [Plaquenil] 400 mg PO DAILY 03/10/13 [History] Ipratropium/Albuterol Sulfate [Duoneb 0.5 MG-3 MG/3 ML] 3 ml INH Q4HR PRN [History] Montelukast [Singulair] 10 mg PO DAILY 03/10/13 [History] NIFEdipine [Adalat cc] 30 mg PO DAILY PRN 03/10/13 [History] Ondansetron [Zofran Odt] 8 mg PO Q8HR PRN 03/10/13 [History] Rizatriptan [Maxalt] 10 mg PO ASDIRECTED PRN 03/10/13 [History] traZODone 50 - 100 mg PO BEDTIME 03/10/13 [History] hydrOXYzine Pamoate [Vistaril] 25 - 50 mg PO Q8H PRN 08/11/13 [History] Ca Cmb No.1/Vit D3/B-6/FA/B12 [Vitamin D3 1,000 Unit] 1 tab PO BEDTIME 01/08/14 [History] Levocetirizine Dihydrochloride [Xyzal] 5 mg PO DAILY 01/11/16 [History] Folic Acid 1 mg PO DAILY 10/27/16 [History] Methotrexate Sodium [Methotrexate] 13 mg PO WEEKLY 10/27/16 [History] Acetaminophen/oxyCODONE [Percocet 325-5 MG] 1 tab PO ASDIRECTED PRN 11/07/16 [ History] Hydrocodone/Acetaminophen [Hydrocodon-Acetaminophen 5-325] 1 each PO Q4H PRN #6 tablet 01/20/17 [Rx] Past Medical History HEENT History: Reports: Other (See Below) Other HEENT History: tubes in ears Respiratory History: Reports: Asthma Musculoskeletal History: Reports: Arthritis, RA Neurological History: Reports: Brain Injury, Headaches, Chronic, Migraines Psychiatric History: Reports: Anxiety - Infectious Disease History Infectious Disease History: Reports: Chicken Pox - Past Surgical History GI Surgical History: Reports: Colonoscopy Musculoskeletal Surgical History: Reports: Other (See Below) Other Musculoskeletal Surgeries/Procedures:: FOOT SURGERY CHRONIC FOOT PAIN. Social & Family History - Tobacco Use Smoking Status *Q: Never Smoker Second Hand Smoke Exposure: No - Caffeine Use Caffeine Use: Reports: Coffee, Soda - Alcohol Use Days Per Week of Alcohol Use: 0 Number of Drinks Per Day: 1 Total Drinks Per Week: 0 - Recreational Drug Use Recreational Drug Use: No ED ROS GENERAL - Review of Systems Review Of Systems: See Below Constitutional: Reports: Decreased Appetite. Denies: Fever, Chills, Diaphoresis , Weight Gain HEENT: Reports: No Symptoms Respiratory: Reports: No Symptoms Cardiovascular: Reports: No Symptoms GI/Abdominal: Reports: Abdominal Pain, Decreased Appetite, Nausea, Vomiting. Denies: Constipation, Diarrhea, Hematemesis, Hematochezia : Reports: No Symptoms Musculoskeletal: Reports: Back Pain (Right low back) Skin: Reports: No Symptoms Neurological: Reports: Headache (Mild), Other (Arthritis). Denies: Difficulty Walking, Gait Disturbance Psychiatric: Reports: No Symptoms Hematologic/Lymphatic: Reports: No Symptoms Immunologic: Reports: No Symptoms ED EXAM, GI/ABD - Physical Exam Exam: See Below Exam Limited By: No Limitations General Appearance: Alert, Anxious, Mild Distress Eyes: Bilateral: Normal Appearance, EOMI Ears: Normal External Exam Nose: Normal Inspection, Normal Mucosa Throat/Mouth: Normal Lips, Normal Gums, Other Head: Atraumatic (Dry mouth), Normocephalic Neck: Normal Inspection, Supple, Non-Tender Respiratory/Chest: No Respiratory Distress, Lungs Clear, Normal Breath Sounds, No Accessory Muscle Use Cardiovascular: Normal Peripheral Pulses, Regular Rate, Rhythm GI/Abdominal Exam: Normal Bowel Sounds, Soft, No Distention, Tender (Right lower quadrant with deep palpation, no guarding). No: Guarding, Rigid, Rebound Back Exam: Normal Inspection Extremities: Normal Inspection, Non-Tender Neurological: Alert, Oriented, Normal Cognition, No Motor/Sensory Deficits Psychiatric: Normal Affect, Normal Mood Skin Exam: Warm, Dry, Intact, Normal Color, No Rash Lymphatic: No Adenopathy Course - Vital Signs Last Recorded V/S: Last Vital Signs Temp 37.2 C 01/20/17 18:22 Pulse 92 01/20/17 18:22 Resp 20 01/20/17 18:22 BP 133/85 01/20/17 18:22 Pulse Ox 96 01/20/17 18:22 - Orders/Labs/Meds Orders: Active Orders 24 hr Category Date Time Status Peripheral IV Care [RC] . DIRECTED Care 01/20/17 18:48 Active Heparin Sodium [Heparin Lock Flush 100 Units/ML] Med 01/20/17 22:30 Active 500 units FLUSH ASDIRECTED PRN Sodium Chloride 0.9% [Normal Saline] 1,000 ml Med 01/20/17 19:00 Active IV ASDIRECTED Sodium Chloride 0.9% [Saline Flush] Med 01/20/17 18:47 Active 10 ml FLUSH ASDIRECTED PRN Peripheral IV Insertion Adult [OM.PC] Routine Oth 01/20/17 18:47 Ordered Medication Orders Heparin Sodium (Porcine) (Heparin Lock Flush 100 Units/Ml) 500 units FLUSH ASDIRECTED PRN PRN Reason: Other Last Admin: 01/20/17 22:55 Dose: 500 units Sodium Chloride (Normal Saline) 1,000 mls @ 500 mls/hr IV ASDIRECTED NITIN Last Admin: 01/20/17 20:00 Dose: 500 mls/hr Sodium Chloride (Saline Flush) 10 ml FLUSH ASDIRECTED PRN PRN Reason: Keep Vein Open Last Admin: 01/20/17 22:54 Dose: 10 ml Admin: 01/20/17 20:13 Dose: 10 ml Labs: Laboratory Tests 01/20/17 01/20/17 01/20/17 Range/Units 18:47 18:47 18:47 WBC 7.0 (4.5-11.0) K/uL RBC 3.91 (3.30-5.50) M/uL Hgb 12.4 (12.0-15.0) g/dL Hct 36.0 (36.0-48.0) % MCV 92 (80-98) fL MCH 32 H (27-31) pg MCHC 34 (32-36) % Plt Count 284 (150-400) K/uL Sodium 142 (140-148) mmol/L Potassium 3.8 (3.6-5.2) mmol/L Chloride 108 (100-108) mmol/L Carbon Dioxide 23 (21-32) mmol/L Anion Gap 10.9 (5.0-14.0) mmol/L BUN 13 (7-18) mg/dL Creatinine 0.9 (0.6-1.0) mg/dL Est Cr Clr Drug Dosing 76.98 mL/min Estimated GFR (MDRD) > 60 (>60) Glucose 94 (74-106) mg/dL Lactic Acid 1.0 (0.4-2.0) mmol/L Calcium 8.9 (8.5-10.1) mg/dL Total Bilirubin 0.5 (0.2-1.0) mg/dL AST 16 (15-37) U/L ALT 27 (12-78) U/L Alkaline Phosphatase 63 (46-116) U/L Total Protein 6.5 (6.4-8.2) g/dL Albumin 3.6 (3.4-5.0) g/dL Globulin 2.9 (2.3-3.5) g/dL Albumin/Globulin Ratio 1.2 (1.2-2.2) Lipase 218 (73-393) U/L Urine Color Urine Appearance Urine pH (4.5-8.0) Ur Specific [place] (1.008-1.030) Urine Protein (NEGATIVE) mg/dL Urine Glucose (UA) (NEGATIVE) mg/dL Urine Ketones (NEGATIVE) mg/dL Urine Occult Blood (NEGATIVE) Urine Nitrite (NEGATIVE) Urine Bilirubin (NEGATIVE) Urine Urobilinogen (NORMAL) mg/dL Ur Leukocyte Esterase (NEGATIVE) Urine RBC (0-5) Urine WBC (0-5) Ur Epithelial Cells Amorphous Sediment Urine Bacteria Urine Mucus 01/20/ Range/Units 19:15 WBC (4.5-11.0) K/uL RBC (3.30-5.50) M/uL Hgb (12.0-15.0) g/dL Hct (36.0-48.0) % MCV (80-98) fL MCH (27-31) pg MCHC (32-36) % Plt Count (150-400) K/uL Sodium (140-148) mmol/L Potassium (3.6-5.2) mmol/L Chloride (100-108) mmol/L Carbon Dioxide (21-32) mmol/L Anion Gap (5.0-14.0) mmol/L BUN (7-18) mg/dL Creatinine (0.6-1.0) mg/dL Est Cr Clr Drug Dosing mL/min Estimated GFR (MDRD) (>60) Glucose (74-106) mg/dL Lactic Acid (0.4-2.0) mmol/L Calcium (8.5-10.1) mg/dL Total Bilirubin (0.2-1.0) mg/dL AST (15-37) U/L ALT (12-78) U/L Alkaline Phosphatase (46-116) U/L Total Protein (6.4-8.2) g/dL Albumin (3.4-5.0) g/dL Globulin (2.3-3.5) g/dL Albumin/Globulin Ratio (1.2-2.2) Lipase (73-393) U/L Urine Color Yellow Urine Appearance Clear Urine pH 7.0 (4.5-8.0) Ur Specific [place] 1.015 (1.008-1.030) Urine Protein Negative (NEGATIVE) mg/dL Urine Glucose (UA) Normal (NEGATIVE) mg/dL Urine Ketones Negative (NEGATIVE) mg/dL Urine Occult Blood Negative (NEGATIVE) Urine Nitrite Negative (NEGATIVE) Urine Bilirubin Negative (NEGATIVE) Urine Urobilinogen Normal (NORMAL) mg/dL Ur Leukocyte Esterase Negative (NEGATIVE) Urine RBC 0-5 (0-5) Urine WBC 0-5 (0-5) Ur Epithelial Cells Moderate Amorphous Sediment Few Urine Bacteria Rare Urine Mucus Few Meds: Medications Generic Name Dose Route Start Last Admin Trade Name Freq PRN Reason Stop Dose Admin Heparin Sodium (Porcine) 500 units 01/20/17 22:30 01/20/17 22:55 Heparin Lock Flush 100 Units/Ml FLUSH 500 units ASDIRECTED PRN Administration Other Sodium Chloride 1,000 mls @ 500 mls/hr 01/20/17 19:00 01/20/17 20:00 Normal Saline IV 500 mls/hr ASDIRECTED NITIN Administration Sodium Chloride 10 ml 01/20/17 18:47 01/20/17 22:54 Saline Flush FLUSH 10 ml ASDIRECTED PRN Administration Keep Vein Open Discontinued Medications Generic Name Dose Route Start Last Admin Trade Name Prince PRN Reason Stop Dose Admin Heparin Sodium (Porcine) Confirm 01/20/17 22:29 01/20/17 22:52 Heparin Lock Flush 100 Units/Ml Administered 01/20/17 22:30 Not Given Dose 500 units .ROUTE .STK-MED ONE Prochlorperazine Edisylate 5 51 mls @ 150 mls/hr 01/20/17 18:48 01/20/17 20: 08 mg/ Sodium Chloride IV 01/20/17 19:08 150 mls/hr ONETIME ONE Administration Ketorolac Tromethamine 15 mg 01/20/17 20:38 01/20/17 21:16 Toradol IVPUSH 01/20/17 20:39 15 mg ONETIME ONE Administration - Re-Assessments/Exams Free Text/Narrative Re-Assessment/Exam: 01/20/17 19:22 26-year-old female with recent abdominal pain ascribed to colitis with new right lower quadrant abdominal pain with nausea and vomiting, onset approximately 48 hours ago. Intravenous saline, prochlorperazine 5 mg improved with the above but will need to miss a few more days of work Has ondansetron at home for nausea which sometimes helps Prescribed 6 tablets hydrocodone/acetaminophen for pain 01/20/17 22:56 Departure - Departure Time of Disposition: 22:07 Disposition: Home, Self-Care 01 Condition: Good Clinical Impression: Gastroenteritis Abdominal pain Qualifiers: Abdominal location: right lower quadrant Qualified Code(s): R10.31 - Right lower quadrant pain - Discharge Information Prescriptions: Hydrocodone/Acetaminophen [Hydrocodon-Acetaminophen 5-325] 1 each PO Q4H PRN #6 tablet PRN Reason: moderate to severe pain Instructions: Viral Gastroenteritis, Adult, [id number], Abdominal Pain, Adult , [id number] Referrals: Leah Agrawal PA [Primary Care Provider] - Forms: ED Department Discharge Additional Instructions: continue with the ondansetron as needed for nausea follow-up with your doctor in 2-3 days or after the weekend if you are not specially approved to get back to work You may need to return to emergency if symptoms worsen - My Orders Last 24 Hours: My Active Orders 01/20/17 18:47 Sodium Chloride 0.9% [Saline Flush] 10 ml FLUSH ASDIRECTED PRN Peripheral IV Insertion Adult [OM.PC] Routine 01/20/17 18:48 Peripheral IV Care [RC] . DIRECTED 01/20/17 19:00 Sodium Chloride 0.9% [Normal Saline] 1,000 ml IV ASDIRECTED 01/20/17 22:30 Heparin Sodium [Heparin Lock Flush 100 Units/ML] 500 units FLUSH ASDIRECTED PRN - Assessment/Plan Last 24 Hours: My Active Orders 01/20/17 18:47 Sodium Chloride 0.9% [Saline Flush] 10 ml FLUSH ASDIRECTED PRN Peripheral IV Insertion Adult [OM.PC] Routine 01/20/17 18:48 Peripheral IV Care [RC] . DIRECTED 01/20/17 19:00 Sodium Chloride 0.9% [Normal Saline] 1,000 ml IV ASDIRECTED 01/20/17 22:30 Heparin Sodium [Heparin Lock Flush 100 Units/ML] 500 units FLUSH ASDIRECTED PRN
[2017-01-20] MEDS: Sodium Chloride 0.9% 10 ML Syringe FLUSH PRN ×2 (20:13→22:54)
[2017-01-20] MEDS ORDERED: Ketorolac 30 MG/ML SDV IVPUSH ONE (20:38)
== END 2017-01-20 22:35 | disposition home or self-care (01) ==
LOC: JP.ED 17:10
DX: K52.9 Noninfective gastroenteritis and colitis, unspecified (principal); J45.909 Unspecified asthma, uncomplicated; Z88.0 Allergy status to penicillin; Z88.1 Allergy status to other antibiotic agents; Z91.018 Allergy to other foods; Z88.2 Allergy status to sulfonamides; Z88.8 Allergy status to other drugs, medicaments and biological substances; Z79.899 Other long term (current) drug therapy
CPT/HCPCS: 36415; 80053; 81001; 83605; 83690; 85027; 96361; 96365; 96375; 99284; C1751; J0780; J1642; J1885; J7040; J7050

== ENCOUNTER 2017-02-22 18:50 | Emergency (ER) | payer OTHER ==
[2017-02-22 19:18] VITALS: BP 166/94
[2017-02-22] MEDS ORDERED: Ketorolac 30 MG/ML SDV IM ONE (20:25)
--- NOTE | 2017-02-22 20:31 | EDM.PDOC ---
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 Since this morning started developing chills mild cough and in particular aches all over including her teeth denies and all her muscles which is highly unusual she reports. she looked up her symptoms on the computer and she is quite convinced that she has influenza. She did get influenza vaccine but she works in custodial and she is on methotrexate for rheumatoid arthritis. Regarding her abdominal pain, she had CT scan in September and then again in October, initially showing very mild signs of colitis, no evidence of inflammatory bowel disease or any surgical condition. She does have a port, from several years ago, no longer valid for contrast but used to administer medications because she has poor vascular access. She does have promethazine and ondansetron at home that she uses for nausea. As needed She has nausea today but no vomiting. She does report some stomach pains as well. No diarrhea. Abdominal Pain Score (Numeric/FACES): 8 - Related Data Allergies Allergy/AdvReac Type Severity Reaction Status Date / Time apple [Apple] Allergy Severe anaphylaxis Verified 02/22/17 19:18 levofloxacin Allergy Severe anaphylaxis Verified 02/22/17 19:18 midazolam Allergy Intermediate Anxiety Verified 02/22/17 19:18 amoxicillin [Amoxicillin] Allergy Mild Hives Verified 02/22/17 19:18 Penicillins Allergy Mild Hives Verified 02/22/17 19:18 Sulfa (Sulfonamide Allergy Mild Hives Verified 02/22/17 19:18 Antibiotics) adhesive Allergy Rash Verified 02/22/17 19:18 diphenhydramine HCl Allergy unknown Verified 02/22/17 19:18 [From Benadryl] peanut Allergy Abdominal Verified 02/22/17 19:18 Cramps vancomycin AdvReac Intermediate Redness Verified 02/22/17 19:18 Home Meds: Home Meds Albuterol [Proventil Neb Soln] 3 ml INH TID PRN 03/10/13 [History] Citalopram [Citalopram HBr] 40 mg PO DAILY 03/10/13 [History] EPINEPHrine [Epipen 2-Dylan] 0.3 mg IM ASDIRECTED 03/10/13 [History] Ipratropium/Albuterol Sulfate [Duoneb 0.5 MG-3 MG/3 ML] 3 ml INH Q4HR PRN [History] Montelukast [Singulair] 10 mg PO DAILY 03/10/13 [History] NIFEdipine [Adalat cc] 30 mg PO DAILY PRN 03/10/13 [History] Ondansetron [Zofran Odt] 8 mg PO Q8HR PRN 03/10/13 [History] Rizatriptan [Maxalt] 10 mg PO ASDIRECTED PRN 03/10/13 [History] traZODone 50 - 100 mg PO BEDTIME 03/10/13 [History] hydrOXYzine Pamoate [Vistaril] 25 - 50 mg PO Q8H PRN 08/11/13 [History] Ca Cmb No.1/Vit D3/B-6/FA/B12 [Vitamin D3 1,000 Unit] 1 tab PO BEDTIME 01/08/14 [History] Levocetirizine Dihydrochloride [Xyzal] 5 mg PO DAILY 01/11/16 [History] Folic Acid 1 mg PO DAILY 10/27/16 [History] Methotrexate Sodium [Methotrexate] 13 mg PO WEEKLY 10/27/16 [History] Hydrocodone/Acetaminophen [Hydrocodon-Acetaminophen 5-325] 1 each PO Q4H PRN #4 tablet 02/22/17 [Rx] Oseltamivir [Tamiflu] 75 mg PO BID #10 cap 02/22/17 [Rx] Past Medical History HEENT History: Reports: Allergic Rhinitis, Other (See Below) Other HEENT History: tubes in ears Cardiovascular History: Reports: Other (See Below) Other Cardiovascular History: Raynauds Respiratory History: Reports: Asthma Musculoskeletal History: Reports: Arthritis, RA Neurological History: Reports: Brain Injury, Concussion, Headaches, Chronic, Migraines Psychiatric History: Reports: Anxiety Endocrine/Metabolic History: Reports: Obesity/BMI 30+ - Infectious Disease History Infectious Disease History: Reports: Chicken Pox - Past Surgical History GI Surgical History: Reports: Colonoscopy Social & Family History - Tobacco Use Smoking Status *Q: Never Smoker Second Hand Smoke Exposure: No - Caffeine Use Caffeine Use: Reports: Coffee, Soda - Alcohol Use Days Per Week of Alcohol Use: 0 Number of Drinks Per Day: 1 Total Drinks Per Week: 0 - Recreational Drug Use Recreational Drug Use: No ED ROS GENERAL - Review of Systems Review Of Systems: See Below Constitutional: Reports: Chills, Fatigue. Denies: Fever HEENT: Reports: No Symptoms Respiratory: Reports: Cough. Denies: Shortness of Breath, Wheezing Cardiovascular: Denies: Chest Pain, Lightheadedness Endocrine: Reports: No Symptoms GI/Abdominal: Reports: Abdominal Pain, Nausea. Denies: Diarrhea, Vomiting : Reports: No Symptoms Musculoskeletal: Reports: Joint Pain, Muscle Pain. Denies: Joint Swelling Skin: Reports: No Symptoms Neurological: Reports: Headache. Denies: Seizure, Syncope, Trouble Speaking, Difficulty Walking Psychiatric: Reports: Anxiety Hematologic/Lymphatic: Reports: No Symptoms Immunologic: Reports: No Symptoms ED EXAM, GENERAL - Physical Exam Exam: See Below Exam Limited By: No Limitations General Appearance: Alert, Anxious, Mild Distress, Other (significantly overweight, no difficulty speaking or breathing, vital signs stable although she does have moderate elevated blood pressure) Eye Exam: Bilateral Eye: Normal Inspection Ears: Normal External Exam Nose: Normal Inspection, Normal Mucosa Throat/Mouth: Normal Inspection, Normal Voice Head: Atraumatic Neck: Normal Inspection, Supple Respiratory/Chest: No Respiratory Distress, No Accessory Muscle Use Cardiovascular: Normal Peripheral Pulses, Regular Rate, Rhythm GI/Abdominal: Normal Bowel Sounds, Soft, No Distention, Tender (nonfocal diffuse mild without guarding). No: Guarding, Rigid, Rebound Extremities: Normal Inspection, Non-Tender. No: Pedal Edema Neurological: Alert, Oriented, No Motor/Sensory Deficits Psychiatric: Anxious Skin Exam: Warm, Dry, Intact, Normal Color, No Rash Lymphatic: No Adenopathy Course - Vital Signs Last Recorded V/S: Last Vital Signs Temp 36.7 C 02/22/17 19:16 Pulse 99 02/22/17 19:16 Resp 20 02/22/17 19:16 BP 166/94 H 02/22/17 19:16 Pulse Ox 96 02/22/17 19:16 - Orders/Labs/Meds Meds: Medications Discontinued Medications Generic Name Dose Route Start Last Admin Trade Name Prince PRN Reason Stop Dose Admin Ketorolac Tromethamine 15 mg 02/22/17 20:25 02/22/17 20:36 Toradol IM 02/22/17 20:26 15 mg ONETIME ONE Administration - Re-Assessments/Exams Free Text/Narrative Re-Assessment/Exam: 02/22/17 21:37 27-year-old female who reports myalgias chills abdominal aching since this morning. Does have background of several visits to emergency for abdominal pain. Examination is reassuring, symptoms are disproportionate to findings I discussed with patient whether to do testing for influenza, she wants to go on influenza medication. I reported to her very limited benefit expected from the medication but it can help with symptoms if she truly has influenza. She was so insistent that she be treated for in view of the fact that she is on methotrexate and working in a custodial I did prescribe the standard dose of Tamiflu. In addition a note off work for 2 days, she was off work today In emergency room she received Toradol 15 mg IM for pain and she was prescribed 4 tablets of hydrocodone for her aches Departure - Departure Time of Disposition: 20:40 Disposition: Home, Self-Care 01 Condition: Good Clinical Impression: Influenza-like illness - Discharge Information Prescriptions: Hydrocodone/Acetaminophen [Hydrocodon-Acetaminophen 5-325] 1 each PO Q4H PRN #4 tablet PRN Reason: moderate pain Oseltamivir [Tamiflu] 75 mg PO BID #10 cap Instructions: Influenza, Adult, [id number] Referrals: Leah Agrawal PA [Primary Care Provider] - Forms: ED Department Discharge, ED Return to Work/School Form Additional Instructions: See your physician/clinic if not able to return to work
== END 2017-02-22 20:52 | disposition home or self-care (01) ==
LOC: JP.ED 18:50
DX: J11.1 Influenza due to unidentified influenza virus with other respiratory manifestations (principal); J45.909 Unspecified asthma, uncomplicated; F41.9 Anxiety disorder, unspecified; Z79.899 Other long term (current) drug therapy; Z88.0 Allergy status to penicillin; Z88.1 Allergy status to other antibiotic agents; Z88.2 Allergy status to sulfonamides; Z88.8 Allergy status to other drugs, medicaments and biological substances; Z91.010 Allergy to peanuts; Z91.018 Allergy to other foods; Z91.048 Other nonmedicinal substance allergy status
CPT/HCPCS: 96372; 99284; J1885

== ENCOUNTER 2017-06-29 11:08 | Emergency (ER) | payer SELFPAY ==
[2017-06-29 11:21] VITALS: BP 119/75
--- NOTE | 2017-06-29 11:49 | EDM.PDOC ---
ED HPI GENERAL MEDICAL PROBLEM - General Chief Complaint: Lower Extremity Injury/Pain Stated Complaint: RT FOOT INJURY Time Seen by Provider: 06/29/17 11:30 Source of Information: Reports: Patient History Limitations: Reports: No Limitations - History of Present Illness INITIAL COMMENTS - FREE TEXT/NARRATIVE: 27-year-old female in for recheck of a right foot injury. She was seen in the clinic yesterday after dropping a large frozen object on her foot. She was having difficulty bearing weight. An x-ray was done at the clinic which looked normal, but she was told that there was a possibility of a "small fracture" and placed in a walking boot. She went in for recheck today and was told that the x- ray was normal. She asked for something for pain and they told her if she wanted pain medication she had to come to the emergency room. She is tearful and hyper dramatic, which reviewing her clinic records is typical for the patient. Location: Reports: Lower Extremity, Right Severity: Moderate Right Feet Pain Score (Numeric/FACES): 8 - Related Data Allergies Allergy/AdvReac Type Severity Reaction Status Date / Time apple [Apple] Allergy Severe anaphylaxis Verified 02/22/17 19:18 levofloxacin Allergy Severe anaphylaxis Verified 02/22/17 19:18 midazolam Allergy Intermediate Anxiety Verified 02/22/17 19:18 amoxicillin [Amoxicillin] Allergy Mild Hives Verified 02/22/17 19:18 Penicillins Allergy Mild Hives Verified 02/22/17 19:18 Sulfa (Sulfonamide Allergy Mild Hives Verified 02/22/17 19:18 Antibiotics) adhesive Allergy Rash Verified 02/22/17 19:18 diphenhydramine HCl Allergy unknown Verified 02/22/17 19:18 [From Benadryl] peanut Allergy Abdominal Verified 02/22/17 19:18 Cramps vancomycin AdvReac Intermediate Redness Verified 02/22/17 19:18 Home Meds: Home Meds Albuterol [Proventil Neb Soln] 3 ml INH TID PRN 03/10/13 [History] Citalopram [Citalopram HBr] 40 mg PO DAILY 03/10/13 [History] EPINEPHrine [Epipen 2-Dylan] 0.3 mg IM ASDIRECTED 03/10/13 [History] Ipratropium/Albuterol Sulfate [Duoneb 0.5 MG-3 MG/3 ML] 3 ml INH Q4HR PRN [History] Montelukast [Singulair] 10 mg PO DAILY 03/10/13 [History] NIFEdipine [Adalat cc] 30 mg PO DAILY PRN 03/10/13 [History] Ondansetron [Zofran Odt] 8 mg PO Q8HR PRN 03/10/13 [History] Rizatriptan [Maxalt] 10 mg PO ASDIRECTED PRN 03/10/13 [History] traZODone 50 - 100 mg PO BEDTIME 03/10/13 [History] hydrOXYzine Pamoate [Vistaril] 25 - 50 mg PO Q8H PRN 08/11/13 [History] Ca Cmb No.1/Vit D3/B-6/FA/B12 [Vitamin D3 1,000 Unit] 1 tab PO BEDTIME 01/08/14 [History] Levocetirizine Dihydrochloride [Xyzal] 5 mg PO DAILY 01/11/16 [History] Folic Acid 1 mg PO DAILY 10/27/16 [History] Methotrexate Sodium [Methotrexate] 13 mg PO WEEKLY 10/27/16 [History] Hydrocodone/Acetaminophen [Hydrocodon-Acetaminophen 5-325] 1 each PO Q4H PRN #4 tablet 02/22/17 [Rx] DULoxetine [Cymbalta] 30 mg PO DAILY 06/29/17 [History] Past Medical History HEENT History: Reports: Allergic Rhinitis, Other (See Below) Other HEENT History: tubes in ears Cardiovascular History: Reports: Other (See Below) Other Cardiovascular History: Raynauds Respiratory History: Reports: Asthma Musculoskeletal History: Reports: Arthritis, RA Neurological History: Reports: Brain Injury, Concussion, Headaches, Chronic, Migraines Psychiatric History: Reports: Anxiety Endocrine/Metabolic History: Reports: Obesity/BMI 30+ - Infectious Disease History Infectious Disease History: Reports: Chicken Pox - Past Surgical History GI Surgical History: Reports: Colonoscopy Dermatological Surgical History: Reports: Other (See Below) Social & Family History - Tobacco Use Smoking Status *Q: Never Smoker Second Hand Smoke Exposure: No - Caffeine Use Caffeine Use: Reports: Coffee, Soda, Tea - Alcohol Use Days Per Week of Alcohol Use: 0 Number of Drinks Per Day: 1 Total Drinks Per Week: 0 - Recreational Drug Use Recreational Drug Use: No Review of Systems - Review of Systems Review Of Systems: See Below Constitutional: Denies: Fever Respiratory: Denies: Shortness of Breath Cardiovascular: Denies: Chest Pain GI/Abdominal: Reports: Other (She recently had some abdominal pain worked up at [facility], that has resolved). Denies: Abdominal Pain Skin: Reports: Bruising (There is some bruising on the top of the foot at the base of the toes) ED EXAM, GENERAL - Physical Exam Exam: See Below Exam Limited By: No Limitations General Appearance: Alert, Mild Distress (Very tearful, hyper dramatic) Respiratory/Chest: No Respiratory Distress Extremities: Other (Exam of the right foot shows no significant swelling but there is bruising on the top of the foot at the base of the second through fourth toes. No tenderness with palpation of the calcaneus or ankle.) Course - Vital Signs Last Recorded V/S: Last Vital Signs Temp 98.3 F 06/29/17 11:27 Pulse 87 06/29/17 11:27 Resp 18 06/29/17 11:27 BP 119/75 06/29/17 11:27 Pulse Ox 96 06/29/17 11:27 - Re-Assessments/Exams Free Text/Narrative Re-Assessment/Exam: 06/29/17 11:47 The boot was removed and an Cosmo wrap was applied around the foot. I recommended increasing activity as tolerated without the boot, she can still use crutches the next few days. I told her it was not a good idea to treat this with narcotic medications, but she continued to cry and acted like she was just overwhelmed with pain. I don't think she was acting, I think it's her personality. I reviewed the [facility], she had one prescription for Tylenol 3, 2 months ago, none since. She was given 15 Tylenol 3's to take as needed for extra pain control when trying to rest and informed that if she needs more than that she needs a podiatry consultation. Departure - Departure Time of Disposition: 12:00 Disposition: Home, Self-Care 01 Condition: Good Clinical Impression: Contusion, foot Qualifiers: Encounter type: initial encounter Laterality: right Qualified Code(s): S90.31XA - Contusion of right foot, initial encounter - Discharge Information Instructions: Foot Contusion, [id number] Referrals: Leah Agrawal PA [Primary Care Provider] - Forms: ED Department Discharge Care Plan Goals: Continue with ibuprofen and add Tylenol with Codeine as needed for extra pain control when trying to rest. Wrap for comfort and increase activity as tolerated , recheck in 5-7 days if not improving satisfactorily.
== END 2017-06-29 12:00 | disposition home or self-care (01) ==
LOC: JP.ED 11:08
DX: S90.31XA Contusion of right foot, initial encounter (principal); Z88.1 Allergy status to other antibiotic agents; Z88.0 Allergy status to penicillin; Z88.2 Allergy status to sulfonamides; Z91.018 Allergy to other foods; Z91.010 Allergy to peanuts; Z79.899 Other long term (current) drug therapy; W20.8XXA Other cause of strike by thrown, projected or falling object, initial encounter
CPT/HCPCS: 99283

== ENCOUNTER 2017-07-11 13:25 | Emergency (ER) | payer OTHER ==
[2017-07-11] MEDS ORDERED: Lactated Ringers 1,000 ML IV ONE (13:57)
[2017-07-11] MEDS ORDERED: Acetaminophen 500 MG Tab PO ONE (13:58)
[2017-07-11] MEDS ORDERED: Atropine/Diphenoxylate 0.025-2.5 MG Tab PO ONE (13:58)
[2017-07-11] MEDS ORDERED: Metoclopramide 10 MG/2 ML SDV IVPUSH ONE (13:58)
--- NOTE | 2017-07-11 14:02 | EDM.PDOC ---
ED HPI GENERAL MEDICAL PROBLEM - General Chief Complaint: Genitourinary Problem Stated Complaint: NAUSEA,VOMITTING Time Seen by Provider: 07/11/17 13:45 Source of Information: Reports: Patient, RN History Limitations: Reports: No Limitations - History of Present Illness INITIAL COMMENTS - FREE TEXT/NARRATIVE: 27 yo female presents with N/V/D since Wednesday. Works at a [employer] in [employer] [facility]. No bleeding. Thinks she has had a fever. Decreased urination. Onset: Gradual Onset Date: 07/09/17 Duration: Day(s): (2) Location: Reports: Abdomen, Generalized - Related Data Allergies Allergy/AdvReac Type Severity Reaction Status Date / Time apple [Apple] Allergy Severe anaphylaxis Verified 07/11/17 13:38 levofloxacin Allergy Severe anaphylaxis Verified 07/11/17 13:38 midazolam Allergy Intermediate Anxiety Verified 07/11/17 13:38 amoxicillin [Amoxicillin] Allergy Mild Hives Verified 07/11/17 13:38 Penicillins Allergy Mild Hives Verified 07/11/17 13:38 Sulfa (Sulfonamide Allergy Mild Hives Verified 07/11/17 13:38 Antibiotics) adhesive Allergy Rash Verified 07/11/17 13:38 diphenhydramine HCl Allergy unknown Verified 07/11/17 13:38 [From Benadryl] peanut Allergy Abdominal Verified 07/11/17 13:38 Cramps vancomycin AdvReac Intermediate Redness Verified 07/11/17 13:38 Home Meds: Home Meds Albuterol [Proventil Neb Soln] 3 ml INH TID PRN 03/10/13 [History] EPINEPHrine [Epipen 2-Dylan] 0.3 mg IM ASDIRECTED 03/10/13 [History] Ipratropium/Albuterol Sulfate [Duoneb 0.5 MG-3 MG/3 ML] 3 ml INH Q4HR PRN [History] Montelukast [Singulair] 10 mg PO DAILY 03/10/13 [History] NIFEdipine [Adalat cc] 30 mg PO DAILY PRN 03/10/13 [History] Ondansetron [Zofran Odt] 8 mg PO Q8HR PRN 03/10/13 [History] Rizatriptan [Maxalt] 10 mg PO ASDIRECTED PRN 03/10/13 [History] traZODone 50 - 100 mg PO BEDTIME 03/10/13 [History] hydrOXYzine Pamoate [Vistaril] 25 - 50 mg PO Q8H PRN 08/11/13 [History] Ca Cmb No.1/Vit D3/B-6/FA/B12 [Vitamin D3 1,000 Unit] 1 tab PO BEDTIME 01/08/14 [History] Levocetirizine Dihydrochloride [Xyzal] 5 mg PO DAILY 01/11/16 [History] Folic Acid 1 mg PO DAILY 10/27/16 [History] Methotrexate Sodium [Methotrexate] 13 mg PO WEEKLY 10/27/16 [History] Hydrocodone/Acetaminophen [Hydrocodon-Acetaminophen 5-325] 1 each PO Q4H PRN #4 tablet 02/22/17 [Rx] DULoxetine [Cymbalta] 30 mg PO DAILY 06/29/17 [History] Linaclotide [Linzess] 1 cap PO DAILY 07/11/17 [History] Past Medical History HEENT History: Reports: Allergic Rhinitis, Other (See Below) Other HEENT History: tubes in ears Cardiovascular History: Reports: Other (See Below) Other Cardiovascular History: Raynauds Respiratory History: Reports: Asthma Musculoskeletal History: Reports: Arthritis, RA Neurological History: Reports: Brain Injury, Concussion, Headaches, Chronic, Migraines Psychiatric History: Reports: Anxiety Endocrine/Metabolic History: Reports: Obesity/BMI 30+ - Infectious Disease History Infectious Disease History: Reports: Chicken Pox - Past Surgical History GI Surgical History: Reports: Colonoscopy Dermatological Surgical History: Reports: Other (See Below) Social & Family History - Tobacco Use Smoking Status *Q: Never Smoker Second Hand Smoke Exposure: No - Caffeine Use Caffeine Use: Reports: Coffee, Soda, Tea - Alcohol Use Days Per Week of Alcohol Use: 0 Number of Drinks Per Day: 1 Total Drinks Per Week: 0 - Recreational Drug Use Recreational Drug Use: No ED ROS GENERAL - Review of Systems Review Of Systems: See Below Constitutional: Reports: Fever, Decreased Appetite HEENT: Reports: No Symptoms Respiratory: Reports: No Symptoms Cardiovascular: Reports: No Symptoms Endocrine: Reports: No Symptoms GI/Abdominal: Reports: Abdominal Pain, Diarrhea, Nausea, Vomiting. Denies: Black Stool, Bloody Stool, Constipation, Distension, Flatus, Hematemesis, Hematochezia, Melena : Reports: No Symptoms Musculoskeletal: Reports: No Symptoms Skin: Reports: No Symptoms Neurological: Reports: No Symptoms ED EXAM, GI/ABD - Physical Exam Exam: See Below Exam Limited By: No Limitations General Appearance: Alert, WD/WN, No Apparent Distress, Obese Eyes: Bilateral: Normal Appearance Ears: Normal External Exam, Normal Canal, Hearing Grossly Normal, Normal TMs Nose: Normal Inspection, Normal Mucosa, No Blood Throat/Mouth: Normal Inspection, Normal Lips, Normal Oropharynx, Normal Voice, No Airway Compromise Head: Atraumatic, Normocephalic Neck: Normal Inspection, Supple, Non-Tender Respiratory/Chest: No Respiratory Distress, Lungs Clear, Normal Breath Sounds, No Accessory Muscle Use Cardiovascular: Regular Rate, Rhythm, No Edema GI/Abdominal Exam: Normal Bowel Sounds, Soft, No Distention, Tender (mild, diffuse). No: Distended, Guarding, Rigid, Rebound Back Exam: Normal Inspection. No: CVA Tenderness (R), CVA Tenderness (L) Extremities: Normal Inspection, Normal Range of Motion, Non-Tender, No Pedal Edema Neurological: Alert, Oriented, CN II-XII Intact, Normal Cognition, No Motor/ Sensory Deficits Psychiatric: Normal Affect, Normal Mood Skin Exam: Warm, Dry, Intact, Normal Color, No Rash Course - Vital Signs Last Recorded V/S: Last Vital Signs Temp 37.7 C 07/11/17 13:42 Pulse 83 07/11/17 15:21 Resp 18 07/11/17 15:21 BP 124/71 07/11/17 15:21 Pulse Ox 98 07/11/17 15:21 - Orders/Labs/Meds Orders: Active Orders 24 hr Category Date Time Status CLOSTRIDIUM DIFFICILE BY PCR [] Stat Lab 07/11/17 15:31 Ordered NS + KCl 20mEq/L [Normal Saline with 20 mEq KCl] 1,000 Med 07/11/17 15:30 Active ml IV ASDIRECTED Medication Orders Potassium Chloride/Sodium Chloride (Normal Saline With 20 Meq Kcl) 1,000 mls @ 1,000 mls/hr IV ASDIRECTED NITIN Last Admin: 07/11/17 15:41 Dose: 1,000 mls/hr Labs: Laboratory Tests 07/11/17 07/11/17 07/11/17 Range/Units 14:17 14:17 15:31 WBC 5.0 (4.5-11.0) K/uL RBC 4.60 (3.30-5.50) M/uL Hgb 14.2 (12.0-15.0) g/dL Hct 40.8 (36.0-48.0) % MCV 89 (80-98) fL MCH 31 (27-31) pg MCHC 35 (32-36) % Plt Count 226 (150-400) K/uL Sodium 142 (140-148) mmol/L Potassium 3.3 L (3.6-5.2) mmol/L Chloride 107 (100-108) mmol/L Carbon Dioxide 20 L (21-32) mmol/L Anion Gap 18.3 H (5.0-14.0) mmol/L BUN 15 (7-18) mg/dL Creatinine 1.0 (0.6-1.0) mg/dL Est Cr Clr Drug Dosing 68.67 mL/min Estimated GFR (MDRD) > 60 (>60) Glucose 80 (74-106) mg/dL Calcium 8.5 (8.5-10.1) mg/dL Magnesium 1.8 (1.8-2.4) mg/dL Meds: Medications Generic Name Dose Route Start Last Admin Trade Name Freq PRN Reason Stop Dose Admin Potassium Chloride/Sodium Chloride 1,000 mls @ 1,000 mls/hr 07/11/17 15:30 15:41 Normal Saline With 20 Meq Kcl IV 1,000 mls/hr ASDIRECTED NITIN Administration Discontinued Medications Generic Name Dose Route Start Last Admin Trade Name Freq PRN Reason Stop Dose Admin Acetaminophen 1,000 mg 07/11/17 13:58 07/11/17 14:21 Tylenol Extra Strength PO 07/11/17 13:59 1,000 mg ONETIME ONE Administration Bismuth Subsalicylate 524 mg 07/11/17 16:00 Pepto Bismol PO 07/11/17 16:01 ONETIME ONE Diphenoxylate HCl/Atropine 2 tab 07/11/17 13:58 07/11/17 14:21 Lomotil 0.025-2.5 Mg PO 07/11/17 13:59 2 tab ONETIME ONE Administration Lactated Ringer's 1,000 mls @ 1,000 mls/hr 07/11/17 13:57 07/11/17 14:21 Ringers, Lactated IV 07/11/17 14:56 1,000 mls/hr BOLUS ONE Administration Metoclopramide HCl 10 mg 07/11/17 13:58 07/11/17 14:21 Reglan IVPUSH 07/11/17 13:59 10 mg ONETIME ONE Administration Ondansetron HCl 4 mg 07/11/17 15:52 07/11/17 15:56 Zofran IVPUSH 07/11/17 15:53 4 mg ONETIME ONE Administration Potassium Chloride 40 meq 07/11/17 15:27 07/11/17 15:42 Klor-Con M20 PO 07/11/17 15:28 40 meq ONETIME ONE Administration Departure - Departure Time of Disposition: 17:30 Disposition: Home, Self-Care 01 Condition: Fair Clinical Impression: Viral gastroenteritis, Hypokalemia - Discharge Information Referrals: Leah Agrawal PA [Primary Care Provider] - Forms: ED Department Discharge - My Orders Last 24 Hours: My Active Orders 07/11/17 15:30 NS + KCl 20mEq/L [Normal Saline with 20 mEq KCl] 1,000 ml IV ASDIRECTED 07/11/17 15:31 CLOSTRIDIUM DIFFICILE BY PCR [RM] Stat - Assessment/Plan Last 24 Hours: My Active Orders 07/11/17 15:30 NS + KCl 20mEq/L [Normal Saline with 20 mEq KCl] 1,000 ml IV ASDIRECTED 07/11/17 15:31 CLOSTRIDIUM DIFFICILE BY PCR [RM] Stat
[2017-07-11 15:22] VITALS: BP 124/71
[2017-07-11] MEDS ORDERED: Potassium Chloride 20 MEQ Tab.ER PO ONE (15:27)
[2017-07-11] MEDS ORDERED: NS + KCl 20mEq/L 1,000 ML IV SCH (15:30)
[2017-07-11] MEDS ORDERED: Ondansetron 4 MG/2 ML SDV IVPUSH ONE (15:52)
[2017-07-11] MEDS ORDERED: Bismuth Subsalicylate 262 MG Tab.Chew PO ONE (16:00)
== END 2017-07-11 17:57 | disposition home or self-care (01) ==
LOC: JP.ED 13:25
DX: A08.4 Viral intestinal infection, unspecified (principal); E87.6 Hypokalemia; J45.909 Unspecified asthma, uncomplicated; F41.9 Anxiety disorder, unspecified; E66.9 Obesity, unspecified; Z88.1 Allergy status to other antibiotic agents; Z88.8 Allergy status to other drugs, medicaments and biological substances; Z88.2 Allergy status to sulfonamides; Z91.010 Allergy to peanuts; Z79.899 Other long term (current) drug therapy; Z68.42 Body mass index [BMI] 45.0-49.9, adult
CPT/HCPCS: 36415; 80048; 83735; 85027; 96361; 96374; 96375; 99284; A9270; J1642; J2405; J2765; J3480; J7120

== ENCOUNTER 2017-07-12 14:17 | Observation (INO) | payer OTHER ==
[2017-07-12] MEDS ORDERED: Sodium Chloride 0.9% 1,000 ML IV SCH ×3 (15:15→17:15)
--- NOTE | 2017-07-12 15:20 | EDM.PDOC ---
ED HPI GENERAL MEDICAL PROBLEM - General Chief Complaint: Gastrointestinal Problem Stated Complaint: NAUSA Time Seen by Provider: 07/12/17 15:11 Source of Information: Reports: Patient History Limitations: Reports: No Limitations - History of Present Illness INITIAL COMMENTS - FREE TEXT/NARRATIVE: pt arrived with a history of persistent diarrhea since Wednesday. She states it is not bloody. She goes about every 1/2hour. sHE IS HAVING ALOT OF CRAMPING. sHE IS NAUSEATED AND HAS VOMITED SOME. Onset: Other ( started Wednesday. ) Duration: Hour(s): Location: Reports: Abdomen Associated Symptoms: Reports: Nausea/Vomiting, Weakness (PT IS HAVING SEVERE DIARRHEA. ), Other - Related Data Allergies Allergy/AdvReac Type Severity Reaction Status Date / Time apple [Apple] Allergy Severe anaphylaxis Verified 07/12/17 14:37 levofloxacin Allergy Severe anaphylaxis Verified 07/12/17 14:37 midazolam Allergy Intermediate Anxiety Verified 07/12/17 14:37 amoxicillin [Amoxicillin] Allergy Mild Hives Verified 07/12/17 14:37 Penicillins Allergy Mild Hives Verified 07/12/17 14:37 Sulfa (Sulfonamide Allergy Mild Hives Verified 07/12/17 14:37 Antibiotics) adhesive Allergy Rash Verified 07/12/17 14:37 diphenhydramine HCl Allergy unknown Verified 07/12/17 14:37 [From Benadryl] peanut Allergy Abdominal Verified 07/12/17 14:37 Cramps vancomycin AdvReac Intermediate Redness Verified 07/12/17 14:37 Home Meds: Home Meds Albuterol [Proventil Neb Soln] 3 ml INH TID PRN 03/10/13 [History] EPINEPHrine [Epipen 2-Dylan] 0.3 mg IM ASDIRECTED 03/10/13 [History] Ipratropium/Albuterol Sulfate [Duoneb 0.5 MG-3 MG/3 ML] 3 ml INH Q4HR PRN [History] Montelukast [Singulair] 10 mg PO DAILY 03/10/13 [History] NIFEdipine [Adalat cc] 30 mg PO DAILY PRN 03/10/13 [History] Ondansetron [Zofran Odt] 8 mg PO Q8HR PRN 03/10/13 [History] Rizatriptan [Maxalt] 10 mg PO ASDIRECTED PRN 03/10/13 [History] traZODone 50 - 100 mg PO BEDTIME 03/10/13 [History] hydrOXYzine Pamoate [Vistaril] 25 - 50 mg PO Q8H PRN 08/11/13 [History] Ca Cmb No.1/Vit D3/B-6/FA/B12 [Vitamin D3 1,000 Unit] 1 tab PO BEDTIME 01/08/14 [History] Levocetirizine Dihydrochloride [Xyzal] 5 mg PO DAILY 01/11/16 [History] Folic Acid 1 mg PO DAILY 10/27/16 [History] Methotrexate Sodium [Methotrexate] 13 mg PO WEEKLY 10/27/16 [History] Hydrocodone/Acetaminophen [Hydrocodon-Acetaminophen 5-325] 1 each PO Q4H PRN #4 tablet 02/22/17 [Rx] DULoxetine [Cymbalta] 30 mg PO DAILY 06/29/17 [History] Linaclotide [Linzess] 1 cap PO DAILY 07/11/17 [History] Potassium Chloride 10 meq PO TID #14 cap.er 07/11/17 [Rx] Past Medical History HEENT History: Reports: Allergic Rhinitis, Other (See Below) Other HEENT History: tubes in ears Cardiovascular History: Reports: Other (See Below) Other Cardiovascular History: Raynauds Respiratory History: Reports: Asthma Musculoskeletal History: Reports: Arthritis, RA Neurological History: Reports: Brain Injury, Concussion, Headaches, Chronic, Migraines Psychiatric History: Reports: Anxiety Endocrine/Metabolic History: Reports: Obesity/BMI 30+ - Infectious Disease History Infectious Disease History: Reports: Chicken Pox - Past Surgical History GI Surgical History: Reports: Colonoscopy Social & Family History - Tobacco Use Smoking Status *Q: Never Smoker Second Hand Smoke Exposure: No - Caffeine Use Caffeine Use: Reports: Coffee, Soda, Tea - Alcohol Use Days Per Week of Alcohol Use: 0 Number of Drinks Per Day: 1 Total Drinks Per Week: 0 - Recreational Drug Use Recreational Drug Use: No ED ROS GENERAL - Review of Systems Review Of Systems: See Below Constitutional: Reports: No Symptoms HEENT: Reports: No Symptoms Respiratory: Reports: No Symptoms Cardiovascular: Reports: No Symptoms Endocrine: Reports: No Symptoms GI/Abdominal: Reports: Diarrhea, Nausea, Vomiting : Reports: No Symptoms Musculoskeletal: Reports: No Symptoms Skin: Reports: No Symptoms ED EXAM, GI/ABD - Physical Exam Exam: See Below Text/Narrative:: PT ARRIVED WITH SEVERE ABDOMANAL CRAMPING. Exam Limited By: No Limitations General Appearance: Alert, Moderate Distress Ears: Normal TMs Nose: Normal Inspection Throat/Mouth: Normal Inspection Head: Atraumatic Neck: Normal Inspection Respiratory/Chest: No Respiratory Distress Cardiovascular: Regular Rate, Rhythm GI/Abdominal Exam: Tender, Other (NPO GUARDING) Rectal (Female) Exam: Deferred Back Exam: Normal Inspection Extremities: Normal Inspection Course - Vital Signs Last Recorded V/S: Last Vital Signs Temp 36.9 C 07/12/17 16:52 Pulse 84 07/12/17 16:52 Resp 19 07/12/17 16:52 BP 121/67 07/12/17 16:52 Pulse Ox 99 07/12/17 16:52 - Orders/Labs/Meds Orders: Active Orders 24 hr Category Date Time Status CLOSTRIDIUM DIFFICILE BY PCR [] Stat Lab 07/12/17 15:51 Ordered CULTURE STOOL + SHIGATOX [] Stat Lab 07/12/17 16:34 Received UA W/MICROSCOPIC [URIN] Urgent Lab 07/12/17 15:42 Ordered Sodium Chloride 0.9% [Normal Saline] 1,000 ml Med 07/12/17 15:15 Active IV ASDIRECTED Sodium Chloride 0.9% [Normal Saline] 1,000 ml Med 07/12/17 16:30 Active IV ASDIRECTED Medication Orders Sodium Chloride (Normal Saline) 1,000 mls @ 999 mls/hr IV ASDIRECTED NITIN Last Admin: 07/12/17 15:23 Dose: 999 mls/hr Sodium Chloride (Normal Saline) 1,000 mls @ 999 mls/hr IV ASDIRECTED NITIN Last Admin: 07/12/17 16:24 Dose: 999 mls/hr Labs: Laboratory Tests 07/12/17 07/12/17 07/12/17 Range/Units 15:26 15:26 15:42 WBC 2.7 L (4.5-11.0) K/uL RBC 3.98 (3.30-5.50) M/uL Hgb 12.4 (12.0-15.0) g/dL Hct 35.4 L (36.0-48.0) % MCV 89 (80-98) fL MCH 31 (27-31) pg MCHC 35 (32-36) % Plt Count 226 (150-400) K/uL Neut % (Auto) 48 (36-66) % Lymph % (Auto) 36 (24-44) % Harlan % (Auto) 15 H (2-6) % Eos % (Auto) 1 L (2-4) % Baso % (Auto) 0 (0-1) % Sodium 145 (140-148) mmol/L Potassium 3.9 (3.6-5.2) mmol/L Chloride 112 H (100-108) mmol/L Carbon Dioxide 20 L (21-32) mmol/L Anion Gap 16.9 H (5.0-14.0) mmol/L BUN 7 D (7-18) mg/dL Creatinine 0.8 (0.6-1.0) mg/dL Est Cr Clr Drug Dosing 85.83 mL/min Estimated GFR (MDRD) > 60 (>60) Glucose 99 (74-106) mg/dL Calcium 8.4 L (8.5-10.1) mg/dL C-Reactive Protein (0.0-0.3) mg/dL Urine Color Yellow Urine Appearance Clear Urine pH 5.0 (4.5-8.0) Ur Specific [place] 1.015 (1.008-1.030) Urine Protein Negative (NEGATIVE) mg/dL Urine Glucose (UA) Normal (NEGATIVE) mg/dL Urine Ketones Negative (NEGATIVE) mg/dL Urine Occult Blood Negative (NEGATIVE) Urine Nitrite Negative (NEGATIVE) Urine Bilirubin Negative (NEGATIVE) Urine Urobilinogen Normal (NORMAL) mg/dL Ur Leukocyte Esterase Negative (NEGATIVE) Urine RBC 0-5 (0-5) Urine WBC 0-5 (0-5) Ur Epithelial Cells Moderate Amorphous Sediment Not seen Urine Bacteria Rare Urine Mucus Not seen 07/12/17 Range/Units 16:34 WBC (4.5-11.0) K/uL RBC (3.30-5.50) M/uL Hgb (12.0-15.0) g/dL Hct (36.0-48.0) % MCV (80-98) fL MCH (27-31) pg MCHC (32-36) % Plt Count (150-400) K/uL Neut % (Auto) (36-66) % Lymph % (Auto) (24-44) % Harlan % (Auto) (2-6) % Eos % (Auto) (2-4) % Baso % (Auto) (0-1) % Sodium (140-148) mmol/L Potassium (3.6-5.2) mmol/L Chloride (100-108) mmol/L Carbon Dioxide (21-32) mmol/L Anion Gap (5.0-14.0) mmol/L BUN (7-18) mg/dL Creatinine (0.6-1.0) mg/dL Est Cr Clr Drug Dosing mL/min Estimated GFR (MDRD) (>60) Glucose (74-106) mg/dL Calcium (8.5-10.1) mg/dL C-Reactive Protein 3.94 H (0.0-0.3) mg/dL Urine Color Urine Appearance Urine pH (4.5-8.0) Ur Specific [place] (1.008-1.030) Urine Protein (NEGATIVE) mg/dL Urine Glucose (UA) (NEGATIVE) mg/dL Urine Ketones (NEGATIVE) mg/dL Urine Occult Blood (NEGATIVE) Urine Nitrite (NEGATIVE) Urine Bilirubin (NEGATIVE) Urine Urobilinogen (NORMAL) mg/dL Ur Leukocyte Esterase (NEGATIVE) Urine RBC (0-5) Urine WBC (0-5) Ur Epithelial Cells Amorphous Sediment Urine Bacteria Urine Mucus Meds: Medications Generic Name Dose Route Start Last Admin Trade Name Freq PRN Reason Stop Dose Admin Sodium Chloride 1,000 mls @ 999 mls/hr 07/12/17 15:15 07/12/17 15:23 Normal Saline IV 999 mls/hr ASDIRECTED NITIN Administration Sodium Chloride 1,000 mls @ 999 mls/hr 07/12/17 16:30 07/12/17 16:24 Normal Saline IV 999 mls/hr ASDIRECTED NITIN Administration Discontinued Medications Generic Name Dose Route Start Last Admin Trade Name Freq PRN Reason Stop Dose Admin Ondansetron HCl 4 mg 07/12/17 16:29 07/12/17 16:38 Zofran IVPUSH 07/12/17 16:30 4 mg ONETIME ONE Administration - Re-Assessments/Exams Free Text/Narrative Re-Assessment/Exam: 07/12/17 17:03 pt has a neg clost diff. Her wbc is 2,700. She has had 3 stools since she was here. She has had 3 liters of fluid. She has alot of nausea and has been doing some vomiting. She has severe cramping. Departure - Departure Time of Disposition: 17:07 Disposition: Home, Self-Care 01 Condition: Fair Clinical Impression: Dehydration, Diarrhea, Viral illness - Discharge Information Referrals: Leah Agrawal PA [Primary Care Provider] - Forms: ED Department Discharge Care Plan Goals: admit to Dr Mayen - My Orders Last 24 Hours: My Active Orders 07/12/17 15:15 Sodium Chloride 0.9% [Normal Saline] 1,000 ml IV ASDIRECTED 07/12/17 15:42 UA W/MICROSCOPIC [URIN] Urgent 07/12/17 15:51 CLOSTRIDIUM DIFFICILE BY PCR [RM] Stat 07/12/17 16:30 Sodium Chloride 0.9% [Normal Saline] 1,000 ml IV ASDIRECTED 07/12/17 16:34 CULTURE STOOL + SHIGATOX [RM] Stat - Assessment/Plan Last 24 Hours: My Active Orders 07/12/17 15:15 Sodium Chloride 0.9% [Normal Saline] 1,000 ml IV ASDIRECTED 07/12/17 15:42 UA W/MICROSCOPIC [URIN] Urgent 07/12/17 15:51 CLOSTRIDIUM DIFFICILE BY PCR [RM] Stat 07/12/17 16:30 Sodium Chloride 0.9% [Normal Saline] 1,000 ml IV ASDIRECTED 07/12/17 16:34 CULTURE STOOL + SHIGATOX [RM] Stat
[2017-07-12] MEDS ORDERED: Ondansetron 4 MG/2 ML SDV IVPUSH ONE (16:29)
[2017-07-12] MEDS ORDERED: Loperamide 2 MG Cap PO ONE (17:05)
[2017-07-12] MEDS ORDERED: HYDROmorphone 0.5 MG/0.5 ML Syringe IVPUSH ONE (17:06)
[2017-07-12] MEDS ORDERED: Sodium Chloride 0.9% 10 ML Syringe FLUSH PRN ×2 (18:07→18:42)
[2017-07-12] MEDS ORDERED: methylPREDNISolone Sodium Succinate 125 MG/2 ML SDV IVPUSH ONE (18:08)
--- NOTE | 2017-07-12 18:12 | PCM.HP ---
H&P History of Present Illness - General Date of Service: 07/12/17 Admit Problem/Dx: Admission Diagnosis/Problem Admission Diagnosis/Problem Gastroenteritis Source of Information: Patient, Old Records, Provider, RN Notes Reviewed History Limitations: Reports: No Limitations - History of Present Illness Initial Comments - Free Text/Narative: Ms. Monte is a 27-year-old woman who is admitted through the emergency department to observation status for further management of nausea and diarrhea secondary to gastroenteritis. She has had profuse frequent watery diarrhea over the past 3 days associated with nausea and occasional episodes of vomiting. She was seen and evaluated in the emergency department last night, evaluation was negative for any evidence of bacterial infection and after she was given IV fluids for hydration discharge to home. Through the night had persistent diarrhea 3 presented to the emergency department this afternoon. White blood cell count is low consistent with underlying viral infection, stool is negative for C. difficile. She does not feel that she is able to keep herself hydrated because of the ongoing nausea with persistent diarrhea. She will be admitted for ongoing hydration and symptom management. - Related Data Allergies/Adverse Reactions: Allergies Allergy/AdvReac Type Severity Reaction Status Date / Time apple [Apple] Allergy Severe anaphylaxis Verified 07/12/17 14:37 levofloxacin Allergy Severe anaphylaxis Verified 07/12/17 14:37 midazolam Allergy Intermediate Anxiety Verified 07/12/17 14:37 amoxicillin [Amoxicillin] Allergy Mild Hives Verified 07/12/17 14:37 Penicillins Allergy Mild Hives Verified 07/12/17 14:37 Sulfa (Sulfonamide Allergy Mild Hives Verified 07/12/17 14:37 Antibiotics) adhesive Allergy Rash Verified 07/12/17 14:37 diphenhydramine HCl Allergy unknown Verified 07/12/17 14:37 [From Benadryl] peanut Allergy Abdominal Verified 07/12/17 14:37 Cramps vancomycin AdvReac Intermediate Redness Verified 07/12/17 14:37 Home Medications: Home Meds Albuterol [Proventil Neb Soln] 3 ml INH TID PRN 03/10/13 [History] EPINEPHrine [Epipen 2-Dylan] 0.3 mg IM ASDIRECTED 03/10/13 [History] Ipratropium/Albuterol Sulfate [Duoneb 0.5 MG-3 MG/3 ML] 3 ml INH Q4HR PRN [History] Montelukast [Singulair] 10 mg PO DAILY 03/10/13 [History] NIFEdipine [Adalat cc] 30 mg PO DAILY PRN 03/10/13 [History] Ondansetron [Zofran Odt] 8 mg PO Q8HR PRN 03/10/13 [History] Rizatriptan [Maxalt] 10 mg PO ASDIRECTED PRN 03/10/13 [History] traZODone 50 - 100 mg PO BEDTIME 03/10/13 [History] hydrOXYzine Pamoate [Vistaril] 25 - 50 mg PO Q8H PRN 08/11/13 [History] Ca Cmb No.1/Vit D3/B-6/FA/B12 [Vitamin D3 1,000 Unit] 1 tab PO BEDTIME 01/08/14 [History] Levocetirizine Dihydrochloride [Xyzal] 5 mg PO DAILY 01/11/16 [History] Folic Acid 1 mg PO DAILY 10/27/16 [History] Methotrexate Sodium [Methotrexate] 13 mg PO WEEKLY 10/27/16 [History] Hydrocodone/Acetaminophen [Hydrocodon-Acetaminophen 5-325] 1 each PO Q4H PRN #4 tablet 02/22/17 [Rx] DULoxetine [Cymbalta] 30 mg PO DAILY 06/29/17 [History] Linaclotide [Linzess] 1 cap PO DAILY 07/11/17 [History] Potassium Chloride 10 meq PO TID #14 cap.er 07/11/17 [Rx] Past Medical History HEENT History: Reports: Allergic Rhinitis, Other (See Below) Other HEENT History: tubes in ears Cardiovascular History: Reports: Other (See Below) Other Cardiovascular History: Raynauds Respiratory History: Reports: Asthma Musculoskeletal History: Reports: Arthritis, RA Neurological History: Reports: Brain Injury, Concussion, Headaches, Chronic, Migraines Psychiatric History: Reports: Anxiety Endocrine/Metabolic History: Reports: Obesity/BMI 30+ - Infectious Disease History Infectious Disease History: Reports: Chicken Pox - Past Surgical History GI Surgical History: Reports: Colonoscopy Social & Family History - Tobacco Use Smoking Status *Q: Never Smoker Second Hand Smoke Exposure: No - Caffeine Use Caffeine Use: Reports: Coffee, Soda, Tea - Alcohol Use Days Per Week of Alcohol Use: 0 Number of Drinks Per Day: 1 Total Drinks Per Week: 0 - Recreational Drug Use Recreational Drug Use: No H&P Review of Systems - Review of Systems: Review Of Systems: See Below General: Reports: Chills, Diaphoresis, Decreased Appetite. Denies: Fever HEENT: Reports: No Symptoms Pulmonary: Reports: No Symptoms Cardiovascular: Reports: No Symptoms Gastrointestinal: Reports: Abdominal Pain, Diarrhea, Decreased Appetite, Nausea , Vomiting. Denies: Black Stool, Bloody Stool, Difficulty Swallowing, Distension, Flatus Genitourinary: Reports: No Symptoms Musculoskeletal: Reports: No Symptoms Skin: Reports: No Symptoms Psychiatric: Reports: No Symptoms Neurological: Reports: No Symptoms Hematologic/Lymphatic: Reports: No Symptoms Immunologic: Reports: No Symptoms Exam - Exam Exam: See Below - Vital Signs Vital Signs: Last Vital Signs Temp 98.5 F 07/12/17 16:52 Pulse 84 07/12/17 16:52 Resp 19 07/12/17 16:52 BP 121/67 07/12/17 16:52 Pulse Ox 99 07/12/17 16:52 Weight: 257 lb - Exam Quality Assessment: Central Line/PICC General: Alert, Oriented, Cooperative, Mild Distress HEENT: Conjunctiva Clear, Hearing Intact, Normal Nasal Septum, Posterior Pharynx Clear, Pupils Equal. No: Mucosa Moist & [place] Neck: Supple, Trachea Midline, +2 Carotid Pulse wo Bruit Lungs: Clear to Auscultation, Normal Respiratory Effort Cardiovascular: Regular Rate, Regular Rhythm, Normal S1, Normal S2. No: Systolic Murmur, Diastolic Murmur GI/Abdominal Exam: Soft, No Organomegaly, Tender. No: Distended, Guarding, Rigid, Rebound Back Exam: Normal Inspection, Full Range of Motion Extremities: Non-Tender, No Pedal Edema, Other (Right foot is in a Cam Walker secondary to recent injury at work) Skin: Warm, Dry Neurological: Cranial Nerves Intact, Strength Equal Bilateral, Normal Speech, Normal Tone, Sensation Intact. No: Focal Deficit Neuro Extensive - Mental Status: Alert, Oriented x3, Normal Mood/Affect, Normal Cognition, Memory Intact - Patient Data Lab Results Last 24 hrs: Laboratory Results - last 24 hr 07/12/17 07/12/17 07/12/17 Range/Units 15:26 15:26 15:42 WBC 2.7 L (4.5-11.0) K/uL RBC 3.98 (3.30-5.50) M/uL Hgb 12.4 (12.0-15.0) g/dL Hct 35.4 L (36.0-48.0) % MCV 89 (80-98) fL MCH 31 (27-31) pg MCHC 35 (32-36) % Plt Count 226 (150-400) K/uL Neut % (Auto) 48 (36-66) % Lymph % (Auto) 36 (24-44) % [place] % (Auto) 15 H (2-6) % Eos % (Auto) 1 L (2-4) % Baso % (Auto) 0 (0-1) % Sodium 145 (140-148) mmol/L Potassium 3.9 (3.6-5.2) mmol/L Chloride 112 H (100-108) mmol/L Carbon Dioxide 20 L (21-32) mmol/L Anion Gap 16.9 H (5.0-14.0) mmol/L BUN 7 D (7-18) mg/dL Creatinine 0.8 (0.6-1.0) mg/dL Est Cr Clr Drug Dosing 85.83 mL/min Estimated GFR (MDRD) > 60 (>60) Glucose 99 (74-106) mg/dL Calcium 8.4 L (8.5-10.1) mg/dL C-Reactive Protein (0.0-0.3) mg/dL Urine Color Yellow Urine Appearance Clear Urine pH 5.0 (4.5-8.0) Ur Specific [place] 1.015 (1.008-1.030) Urine Protein Negative (NEGATIVE) mg/dL Urine Glucose (UA) Normal (NEGATIVE) mg/dL Urine Ketones Negative (NEGATIVE) mg/dL Urine Occult Blood Negative (NEGATIVE) Urine Nitrite Negative (NEGATIVE) Urine Bilirubin Negative (NEGATIVE) Urine Urobilinogen Normal (NORMAL) mg/dL Ur Leukocyte Esterase Negative (NEGATIVE) Urine RBC 0-5 (0-5) Urine WBC 0-5 (0-5) Ur Epithelial Cells Moderate Amorphous Sediment Not seen Urine Bacteria Rare Urine Mucus Not seen 07/12/17 Range/Units 16:34 WBC (4.5-11.0) K/uL RBC (3.30-5.50) M/uL Hgb (12.0-15.0) g/dL Hct (36.0-48.0) % MCV (80-98) fL MCH (27-31) pg MCHC (32-36) % Plt Count (150-400) K/uL Neut % (Auto) (36-66) % Lymph % (Auto) (24-44) % [place] % (Auto) (2-6) % Eos % (Auto) (2-4) % Baso % (Auto) (0-1) % Sodium (140-148) mmol/L Potassium (3.6-5.2) mmol/L Chloride (100-108) mmol/L Carbon Dioxide (21-32) mmol/L Anion Gap (5.0-14.0) mmol/L BUN (7-18) mg/dL Creatinine (0.6-1.0) mg/dL Est Cr Clr Drug Dosing mL/min Estimated GFR (MDRD) (>60) Glucose (74-106) mg/dL Calcium (8.5-10.1) mg/dL C-Reactive Protein 3.94 H (0.0-0.3) mg/dL Urine Color Urine Appearance Urine pH (4.5-8.0) Ur Specific [place] (1.008-1.030) Urine Protein (NEGATIVE) mg/dL Urine Glucose (UA) (NEGATIVE) mg/dL Urine Ketones (NEGATIVE) mg/dL Urine Occult Blood (NEGATIVE) Urine Nitrite (NEGATIVE) Urine Bilirubin (NEGATIVE) Urine Urobilinogen (NORMAL) mg/dL Ur Leukocyte Esterase (NEGATIVE) Urine RBC (0-5) Urine WBC (0-5) Ur Epithelial Cells Amorphous Sediment Urine Bacteria Urine Mucus Result Diagrams: 07/12/17 15:26 07/12/17 15:26 Nando Results Last 24 hrs: Microbiology 07/12/17 15:51 Clostridium difficile (PCR) - Final Stool / Feces NEGATIVE CDIFF TOXIN *Q Meaningful Use (ADM) - VTE Risk Assess *Q Each Risk Factor Represents 1 Point: Obesity ( BMI > 25 kg/m2) Total Score 1 Point Risk Factors: 1 Each Risk Factor Represents 2 Points: Central venous access Total Score 2 Point Risk Factors: 2 Each Risk Factor Represents 3 Points: None Total Score 3 Point Risk Factors: 0 Each Risk Factor Represents 5 Points: None Total Score 5 Point Risk Factors: 0 Venous Thromboembolism Risk Factor Score *Q: 3 Problem List Initiated/Reviewed/Updated: Yes Orders Last 24hrs: Active Orders 24 hr Category Date Time Status Patient Status Manage Transfer [TRANSFER] Routine ADT 07/12/17 17:56 Ordered CLOSTRIDIUM DIFFICILE BY PCR [] Stat Lab 07/12/17 15:51 Ordered CULTURE STOOL + SHIGATOX [RM] Stat Lab 07/12/17 16:34 Received UA W/MICROSCOPIC [URIN] Urgent Lab 07/12/17 15:42 Ordered Sodium Chloride 0.9% [Normal Saline] 1,000 ml Med 07/12/17 15:15 Active IV ASDIRECTED Sodium Chloride 0.9% [Normal Saline] 1,000 ml Med 07/12/17 16:30 Active IV ASDIRECTED Sodium Chloride 0.9% [Normal Saline] 1,000 ml Med 07/12/17 17:15 Active IV ASDIRECTED Resuscitation Status Routine Resus Stat 07/12/17 18:02 Ordered Medication Orders Sodium Chloride (Normal Saline) 1,000 mls @ 999 mls/hr IV ASDIRECTED [facility] Last Admin: 07/12/17 15:23 Dose: 999 mls/hr Sodium Chloride (Normal Saline) 1,000 mls @ 999 mls/hr IV ASDIRECTED [facility] Last Admin: 07/12/17 16:24 Dose: 999 mls/hr Sodium Chloride (Normal Saline) 1,000 mls @ 500 mls/hr IV ASDIRECTED [facility] Last Admin: 07/12/17 17:21 Dose: 500 mls/hr Assessment/Plan Comment:: ASSESSMENT AND PLAN VIRAL GASTROENTERITIS-symptoms present for 3 days including diarrhea, nausea, and vomiting, resulting in dehydration and weakness. No evidence of underlying bacterial infection, C. difficile antigen is negative. -Pain and antiemetic therapy as needed - IV fluids for hydration -Imodium when necessary RHEUMATOID ARTHRITIS-stable on current therapy MAINTENANCE ISSUES -DVT prophylaxis; ambulation -GI prophylaxis; Protonix 40 mg IV every 24 hours -Jaime catheter; not indicated -Nutrition; regular diet -Nicotinine dependence; not required CODE STATUS- FULL CODE ADMISSION STATUS-this patient will be admitted to observation status, expect no more than a one night hospital stay for evaluation and management of problems as outlined above. DISPOSITION-anticipate discharge to home after the hospital stay. PRIMARY CARE PROVIDER-Kristin Agrawal
[2017-07-12] MEDS ORDERED: Acetaminophen 325 MG Tab PO PRN (18:42)
[2017-07-12] MEDS ORDERED: LORazepam 2 MG/ML SDV IVPUSH PRN (18:42)
[2017-07-12] MEDS ORDERED: Loperamide 2 MG Cap PO PRN (18:42)
[2017-07-12] MEDS ORDERED: Albuterol 0.021% 0.63 MG/3 ML Neb Soln INH PRN (18:42)
[2017-07-12] MEDS ORDERED: NIFEdipine 30 MG Tab.ER PO PRN (19:00)
[2017-07-12] MEDS: Sodium Chloride 0.9% 1,000 ML IV SCH (19:25)
[2017-07-12] MEDS ORDERED: Pantoprazole 40 MG Vial IVPUSH SCH (20:00)
[2017-07-12] MEDS: Acetaminophen/HYDROcodone 325-5 MG Tab PO PRN (20:25)
[2017-07-12] MEDS: Ondansetron 4 MG Tab.DIS PO PRN (20:25)
[2017-07-12] MEDS ORDERED: DULoxetine 30 MG Cap PO SCH (21:00)
[2017-07-12] MEDS ORDERED: traZODone 50 MG Tab PO SCH ×2 (21:00)
[2017-07-12] MEDS ORDERED: Potassium Chloride 10 MEQ Cap.ER PO SCH (21:00)
[2017-07-13] MEDS: Acetaminophen/HYDROcodone 325-5 MG Tab PO PRN ×3 (01:29→12:03)
[2017-07-13] MEDS: Ondansetron 4 MG Tab.DIS PO PRN ×3 (01:30→10:11)
[2017-07-13] MEDS: Sodium Chloride 0.9% 1,000 ML IV SCH (03:26)
[2017-07-13] MEDS ORDERED: Albuterol 0.021% 0.63 MG/3 ML Neb Soln INH PRN ×2 (07:26→07:27)
[2017-07-13] MEDS: Potassium Chloride 10 MEQ Cap.ER PO SCH ×2 (08:56→12:18)
[2017-07-13] MEDS ORDERED: DULoxetine 30 MG Cap PO SCH (09:00)
[2017-07-13 11:30] VITALS: BP 116/59
--- NOTE | 2017-07-13 12:17 | PCM.DCSUM1 ---
Discharge Summary - Hospital Course Brief History: Ms. Monte is a 27-year-old woman who was admitted through the emergency department to observation status with dehydration secondary to nausea , vomiting, diarrhea. - Discharge Data Discharge Date: 07/13/17 Discharge Disposition: Home, Self-Care 01 Condition: Fair - Discharge Diagnosis/Problem(s) (1) Dehydration SNOMED Code(s): 64654876 ICD Code: E86.0 - DEHYDRATION Status: Acute Current Visit: Yes (2) Viral gastroenteritis SNOMED Code(s): 662123115 ICD Code: A08.4 - VIRAL INTESTINAL INFECTION, UNSPECIFIED Status: Acute Current Visit: No - Patient Summary/Data Hospital Course: Ms. Monte is a 27-year-old woman who was admitted through the emergency department to observation status for further management of nausea and diarrhea secondary to gastroenteritis. She had had profuse frequent watery diarrhea over the past 3 days, prior to admission, associated with nausea and occasional episodes of vomiting. She was seen and evaluated in the emergency department on the evening prior to admission, evaluation was negative for any evidence of bacterial infection and after she was given IV fluids for hydration discharged to home. Through the night had persistent diarrhea and presented to the emergency department on the afternoon of admission. White blood cell count is low consistent with underlying viral infection, stool is negative for C. difficile. She does not feel that she is able to keep herself hydrated because of the ongoing nausea with persistent diarrhea. She was admitted for ongoing hydration and symptom management. On admission she was given further IV fluids for hydration as well as medication for nausea. During hospitalization had no further episodes of diarrhea and was able to tolerate a regular diet prior to discharge. Activity will be as tolerated, she will be off work until July 16. She initially will work on keeping liquids down to maintain hydration and soft foods. As symptoms improve she can advance back to her regular diet. - Patient Instructions Diet: GI Soft/Low Residue/Low Fiber Activity: As Tolerated Activity, Other: Off work until July 16 - Discharge Plan Home Medications: Home Meds Albuterol [Proventil Neb Soln] 3 ml INH TID PRN 03/10/13 [History] EPINEPHrine [Epipen 2-Dylan] 0.3 mg IM ASDIRECTED 03/10/13 [History] Ipratropium/Albuterol Sulfate [Duoneb 0.5 MG-3 MG/3 ML] 3 ml INH Q4HR PRN [History] Montelukast [Singulair] 10 mg PO DAILY 03/10/13 [History] NIFEdipine [Adalat cc] 30 mg PO DAILY PRN 03/10/13 [History] Ondansetron [Zofran Odt] 8 mg PO Q8HR PRN 03/10/13 [History] Rizatriptan [Maxalt] 10 mg PO ASDIRECTED PRN 03/10/13 [History] traZODone 50 - 100 mg PO BEDTIME 03/10/13 [History] hydrOXYzine Pamoate [Vistaril] 25 - 50 mg PO Q8H PRN 08/11/13 [History] Ca Cmb No.1/Vit D3/B-6/FA/B12 [Vitamin D3 1,000 Unit] 1 tab PO BEDTIME 01/08/14 [History] Levocetirizine Dihydrochloride [Xyzal] 5 mg PO DAILY 01/11/16 [History] Folic Acid 1 mg PO DAILY 10/27/16 [History] Methotrexate Sodium [Methotrexate] 13 mg PO WEEKLY 10/27/16 [History] Hydrocodone/Acetaminophen [Hydrocodon-Acetaminophen 5-325] 1 each PO Q4H PRN #4 tablet 02/22/17 [Rx] DULoxetine [Cymbalta] 30 mg PO DAILY 06/29/17 [History] Linaclotide [Linzess] 1 cap PO DAILY 07/11/17 [History] Potassium Chloride 10 meq PO TID #14 cap.er 07/11/17 [Rx] Referrals: Leah Agrawal PA [Primary Care Provider] - - Discharge Summary/Plan Comment DC Time >30 min.: No - Patient Data Vitals - Most Recent: Last Vital Signs Temp 99.2 F 07/13/17 11:00 Pulse 74 07/13/17 11:00 Resp 16 07/13/17 11:00 BP 116/59 L 07/13/17 11:00 Pulse Ox 96 07/13/17 11:00 Weight - Most Recent: 265 lb 0.001 oz I&O - Last 24 hours: Intake & Output 07/12/17 07/13/17 07/13/17 22:59 06:59 14:59 Intake Total 4336 600 Output Total 700 1600 600 Balance -700 2736 0 Lab Results - Last 24 hrs: Laboratory Results - last 24 hr 07/12/17 07/12/17 07/12/17 Range/Units 15:26 15:26 15:42 WBC 2.7 L (4.5-11.0) K/uL RBC 3.98 (3.30-5.50) M/uL Hgb 12.4 (12.0-15.0) g/dL Hct 35.4 L (36.0-48.0) % MCV 89 (80-98) fL MCH 31 (27-31) pg MCHC 35 (32-36) % Plt Count 226 (150-400) K/uL Neut % (Auto) 48 (36-66) % Lymph % (Auto) 36 (24-44) % [place] % (Auto) 15 H (2-6) % Eos % (Auto) 1 L (2-4) % Baso % (Auto) 0 (0-1) % Sodium 145 (140-148) mmol/L Potassium 3.9 (3.6-5.2) mmol/L Chloride 112 H (100-108) mmol/L Carbon Dioxide 20 L (21-32) mmol/L Anion Gap 16.9 H (5.0-14.0) mmol/L BUN 7 D (7-18) mg/dL Creatinine 0.8 (0.6-1.0) mg/dL Est Cr Clr Drug Dosing 85.83 mL/min Estimated GFR (MDRD) > 60 (>60) Glucose 99 (74-106) mg/dL Calcium 8.4 L (8.5-10.1) mg/dL C-Reactive Protein (0.0-0.3) mg/dL Urine Color Yellow Urine Appearance Clear Urine pH 5.0 (4.5-8.0) Ur Specific [place] 1.015 (1.008-1.030) Urine Protein Negative (NEGATIVE) mg/dL Urine Glucose (UA) Normal (NEGATIVE) mg/dL Urine Ketones Negative (NEGATIVE) mg/dL Urine Occult Blood Negative (NEGATIVE) Urine Nitrite Negative (NEGATIVE) Urine Bilirubin Negative (NEGATIVE) Urine Urobilinogen Normal (NORMAL) mg/dL Ur Leukocyte Esterase Negative (NEGATIVE) Urine RBC 0-5 (0-5) Urine WBC 0-5 (0-5) Ur Epithelial Cells Moderate Amorphous Sediment Not seen Urine Bacteria Rare Urine Mucus Not seen 07/12/17 07/13/17 Range/Units 16:34 04:55 WBC (4.5-11.0) K/uL RBC (3.30-5.50) M/uL Hgb (12.0-15.0) g/dL Hct (36.0-48.0) % MCV (80-98) fL MCH (27-31) pg MCHC (32-36) % Plt Count (150-400) K/uL Neut % (Auto) (36-66) % Lymph % (Auto) (24-44) % [place] % (Auto) (2-6) % Eos % (Auto) (2-4) % Baso % (Auto) (0-1) % Sodium 145 (140-148) mmol/L Potassium 3.6 (3.6-5.2) mmol/L Chloride 113 H (100-108) mmol/L Carbon Dioxide 19 L (21-32) mmol/L Anion Gap 16.6 H (5.0-14.0) mmol/L BUN 3 L D (7-18) mg/dL Creatinine 0.7 (0.6-1.0) mg/dL Est Cr Clr Drug Dosing 98.06 mL/min Estimated GFR (MDRD) > 60 (>60) Glucose 84 (74-106) mg/dL Calcium 8.0 L (8.5-10.1) mg/dL C-Reactive Protein 3.94 H (0.0-0.3) mg/dL Urine Color Urine Appearance Urine pH (4.5-8.0) Ur Specific [place] (1.008-1.030) Urine Protein (NEGATIVE) mg/dL Urine Glucose (UA) (NEGATIVE) mg/dL Urine Ketones (NEGATIVE) mg/dL Urine Occult Blood (NEGATIVE) Urine Nitrite (NEGATIVE) Urine Bilirubin (NEGATIVE) Urine Urobilinogen (NORMAL) mg/dL Ur Leukocyte Esterase (NEGATIVE) Urine RBC (0-5) Urine WBC (0-5) Ur Epithelial Cells Amorphous Sediment Urine Bacteria Urine Mucus TOM Results - Last 24 hrs: Microbiology 07/12/17 16:34 - Final Stool / Feces NEGATIVE FOR SHIGA TOXIN 1 - Final NEGATIVE FOR SHIGA TOXIN 2 07/12/17 15:51 Clostridium difficile (PCR) - Final Stool / Feces NEGATIVE CDIFF TOXIN Med Orders - Current: Current Medications Acetaminophen (Tylenol) 650 mg PO Q4H PRN PRN Reason: Pain (Mild 1-3)/fever Hydrocodone Bitart/Acetaminophen ([place] 325-5 Mg) 1 tab PO Q4H PRN PRN Reason: moderate pain Last Admin: 07/13/17 12:03 Dose: 1 tab Albuterol (Proventil Neb Soln) 0.63 mg INH Q4H PRN PRN Reason: Shortness of Breath Duloxetine HCl (Cymbalta) 30 mg PO BEDTIME [facility] Last Admin: 07/12/17 20:47 Dose: 30 mg Heparin Sodium (Porcine) (Heparin Lock Flush 100 Units/Ml) 500 units FLUSH ASDIRECTED PRN PRN Reason: Other Sodium Chloride (Normal Saline) 1,000 mls @ 125 mls/hr IV ASDIRECTED [facility] Last Admin: 07/13/17 03:26 Dose: 125 mls/hr Loperamide HCl (Imodium) 2 mg PO Q4H PRN PRN Reason: Diarrhea Lorazepam (Ativan) 0.5 mg IVPUSH Q4H PRN PRN Reason: Nausea Nifedipine (Procardia Xl) 30 mg PO DAILY PRN PRN Reason: DISCOLORATION OF FINGERS Ondansetron HCl (Zofran Odt) 4 mg PO Q4H PRN PRN Reason: NAUSEA Last Admin: 07/13/17 10:11 Dose: 4 mg Pantoprazole Sodium (Protonix Iv) 40 mg IVPUSH Q24H [facility] Last Admin: 07/12/17 20:26 Dose: 40 mg Potassium Chloride (Potassium Chloride) 10 meq PO TIDMEALS [facility] Last Admin: 07/13/17 08:56 Dose: 10 meq Sodium Chloride (Saline Flush) 10 ml FLUSH ASDIRECTED PRN PRN Reason: Keep Vein Open Trazodone HCl (Trazodone) 200 mg PO BEDTIME [facility] Last Admin: 07/12/17 20:48 Dose: 200 mg Discontinued Medications Duloxetine HCl (Cymbalta) 30 mg PO DAILY [facility] Hydromorphone HCl (Dilaudid) 0.5 mg IVPUSH ONETIME ONE Stop: 07/12/17 17:07 Last Admin: 07/12/17 17:18 Dose: 0.5 mg Sodium Chloride (Normal Saline) 1,000 mls @ 999 mls/hr IV ASDIRECTED [facility] Last Admin: 07/12/17 15:23 Dose: 999 mls/hr Sodium Chloride (Normal Saline) 1,000 mls @ 999 mls/hr IV ASDIRECTED [facility] Last Admin: 07/12/17 16:24 Dose: 999 mls/hr Sodium Chloride (Normal Saline) 1,000 mls @ 500 mls/hr IV ASDIRECTED [facility] Last Admin: 07/12/17 17:21 Dose: 500 mls/hr Loperamide HCl (Imodium) 4 mg PO ONETIME ONE Stop: 07/12/17 17:06 Last Admin: 07/12/17 17:18 Dose: 4 mg Methylprednisolone Sodium Succinate (Solu-Medrol) 125 mg IVPUSH ONETIME ONE Stop: 07/12/17 18:09 Ondansetron HCl (Zofran) 4 mg IVPUSH ONETIME ONE Stop: 07/12/17 16:30 Last Admin: 07/12/17 16:38 Dose: 4 mg Potassium Chloride (Potassium Chloride) 10 meq PO TID [facility] Last Admin: 07/12/17 20:26 Dose: 10 meq Trazodone HCl (Trazodone) 50 mg PO BEDTIME NITIN - Exam General: Reports: Alert, Oriented, Cooperative, No Acute Distress Lungs: Reports: Clear to Auscultation, Normal Respiratory Effort Cardiovascular: Reports: Regular Rate, Regular Rhythm GI/Abdominal Exam: Soft, No Organomegaly, Tender. No: Distended, Guarding, Rigid, Rebound
== END 2017-07-13 12:58 | disposition home or self-care (01) ==
LOC: JP.ED 14:17 → JP.MS 17:56
PROVIDERS: ADMIT Hospitalist; ATTEND Hospitalist
DX: E86.0 Dehydration (principal); A08.4 Viral intestinal infection, unspecified; J45.909 Unspecified asthma, uncomplicated; F41.9 Anxiety disorder, unspecified; E66.9 Obesity, unspecified; Z79.899 Other long term (current) drug therapy; Z88.1 Allergy status to other antibiotic agents; Z91.018 Allergy to other foods; Z88.0 Allergy status to penicillin; Z88.2 Allergy status to sulfonamides; Z91.09 Other allergy status, other than to drugs and biological substances; Z91.010 Allergy to peanuts; Z68.30 Body mass index [BMI] 30.0-30.9, adult
CPT/HCPCS: 36415; 80048; 81001; 85025; 86140; 87046; 87493; 87899; 96361; 96374; 96375; 99284; A9270; C9113; J1170; J1642; J2405; J7040

== ENCOUNTER 2017-09-09 16:33 | Emergency (ER) | payer OTHER ==
[2017-09-09 17:11] VITALS: BP 128/80
[2017-09-09] MEDS ORDERED: Acetaminophen 500 MG Tab PO ONE (18:20)
[2017-09-09] MEDS ORDERED: Ondansetron 4 MG Tab.DIS PO ONE (18:38)
--- NOTE | 2017-09-09 18:38 | EDM.PDOC ---
ED HPI GENERAL MEDICAL PROBLEM - General Chief Complaint: Abdominal Pain Stated Complaint: RIGHT SIDE ABD PAIN,NAUSEA Time Seen by Provider: 09/09/17 18:00 Source of Information: Reports: Patient History Limitations: Reports: No Limitations - History of Present Illness INITIAL COMMENTS - FREE TEXT/NARRATIVE: 27-year-old female who frequency emergency room fairly often has had 3 days of abdominal pain. She also has persistent nausea. She has had this in the past and findings have been negative. No vomiting, she looks comfortable. No fevers or chills. Pain is diffuse and intermittent. No diarrhea, she had a normal bowel movement this morning. No urinary tract symptoms. No respiratory symptoms or rashes. Her family told her to come in and get checked because she probably has "appendicitis". No history of abdominal surgeries. Onset: Gradual (Over the past 3 days) Location: Reports: Abdomen Severity: Mild Abdominal Pain Score (Numeric/FACES): 8 - Related Data Allergies Allergy/AdvReac Type Severity Reaction Status Date / Time apple [Apple] Allergy Severe anaphylaxis Verified 09/09/17 17:12 levofloxacin Allergy Severe anaphylaxis Verified 09/09/17 17:12 midazolam Allergy Intermediate Anxiety Verified 09/09/17 17:12 amoxicillin [Amoxicillin] Allergy Mild Hives Verified 09/09/17 17:12 Penicillins Allergy Mild Hives Verified 09/09/17 17:12 Sulfa (Sulfonamide Allergy Mild Hives Verified 09/09/17 17:12 Antibiotics) adhesive Allergy Rash Verified 09/09/17 17:12 diphenhydramine HCl Allergy unknown Verified 09/09/17 17:12 [From Benadryl] peanut Allergy Abdominal Verified 09/09/17 17:12 Cramps vancomycin AdvReac Intermediate Redness Verified 09/09/17 17:12 Home Meds: Home Meds EPINEPHrine [Epipen 2-Dylan] 0.3 mg IM ASDIRECTED PRN 03/10/13 [History] Ipratropium/Albuterol Sulfate [Duoneb 0.5 MG-3 MG/3 ML] 3 ml INH Q4HR PRN [History] Montelukast [Singulair] 10 mg PO DAILY 03/10/13 [History] NIFEdipine [Adalat cc] 30 mg PO ASDIRECTED PRN 03/10/13 [History] Ondansetron [Zofran Odt] 8 mg PO Q8HR PRN 03/10/13 [History] Rizatriptan [Maxalt] 10 mg PO ASDIRECTED PRN 03/10/13 [History] traZODone 200 mg PO BEDTIME 03/10/13 [History] hydrOXYzine Pamoate [Vistaril] 25 - 50 mg PO Q8H PRN 08/11/13 [History] Folic Acid 2 mg PO DAILY 10/27/16 [History] Methotrexate Sodium [Methotrexate] 15 mg PO WEEKLY 10/27/16 [History] DULoxetine [Cymbalta] 60 mg PO DAILY 06/29/17 [History] Linaclotide [Linzess] 1 cap PO DAILY 07/11/17 [History] *Zopenex PRN 09/09/17 [History] Cholecalciferol (Vitamin D3) [Vitamin D3] 2,000 unit PO DAILY 09/09/17 [History] Pseudoephedrine HCl/Acrivas [Semprex-D 8 mg-60 mg Capsule] 1 each PO BID [History] Past Medical History HEENT History: Reports: Allergic Rhinitis, Other (See Below) Other HEENT History: tubes in ears Cardiovascular History: Reports: Other (See Below) Other Cardiovascular History: Raynauds Respiratory History: Reports: Asthma Musculoskeletal History: Reports: Arthritis, RA Neurological History: Reports: Brain Injury, Concussion, Headaches, Chronic, Migraines Psychiatric History: Reports: Anxiety Endocrine/Metabolic History: Reports: Obesity/BMI 30+ - Infectious Disease History Infectious Disease History: Reports: Chicken Pox, Influenza - Past Surgical History GI Surgical History: Reports: Colonoscopy Dermatological Surgical History: Reports: Other (See Below) Social & Family History - Family History Respiratory: Reports: None GI: Reports: None : Reports: None - Tobacco Use Smoking Status *Q: Unknown Ever Smoked - Caffeine Use Caffeine Use: Reports: Coffee, Soda ED ROS GENERAL - Review of Systems Review Of Systems: See Below Constitutional: Denies: Fever, Chills HEENT: Reports: No Symptoms Respiratory: Denies: Shortness of Breath, Cough Cardiovascular: Denies: Chest Pain GI/Abdominal: Reports: Abdominal Pain, Nausea. Denies: Constipation, Diarrhea, Vomiting : Reports: No Symptoms Skin: Reports: No Symptoms Neurological: Denies: Headache Psychiatric: Reports: Anxiety, Other (In reviewing her records she likely has at least some somatization disorder.) ED EXAM, GI/ABD - Physical Exam Exam: See Below Exam Limited By: No Limitations General Appearance: Alert, No Apparent Distress (Looks uncomfortable but not distressed) Eyes: Bilateral: Normal Appearance (No jaundice) Respiratory/Chest: No Respiratory Distress, Lungs Clear Cardiovascular: Regular Rate, Rhythm GI/Abdominal Exam: Normal Bowel Sounds, Soft, Tender (Reacts with tenderness to palpation over the entire abdomen, somewhat worse across her right upper quadrant and right lower quadrant), Other (Morbidly obese) Neurological: Alert, Oriented Psychiatric: Anxious Course - Vital Signs Last Recorded V/S: Last Vital Signs Temp 98.3 F 09/09/17 17:10 Pulse 106 H 09/09/17 17:10 Resp 14 09/09/17 17:10 BP 128/80 09/09/17 17:10 Pulse Ox 99 09/09/17 17:10 - Orders/Labs/Meds Orders: Active Orders 24 hr Category Date Time Status Abdomen Pelvis w Cont [CT] Stat Exams 09/09/17 18:55 Taken Labs: Laboratory Tests 09/09/17 09/09/17 Range/Units 17:57 17:57 WBC 7.6 (4.5-11.0) K/uL RBC 4.29 (3.30-5.50) M/uL Hgb 13.7 (12.0-15.0) g/dL Hct 39.6 (36.0-48.0) % MCV 92 (80-98) fL MCH 32 H (27-31) pg MCHC 35 (32-36) % Plt Count 279 (150-400) K/uL Neut % (Auto) 66 (36-66) % Lymph % (Auto) 26 (24-44) % [place] % (Auto) 8 H (2-6) % Eos % (Auto) 1 L (2-4) % Baso % (Auto) 0 (0-1) % Sodium 140 (140-148) mmol/L Potassium 4.0 (3.6-5.2) mmol/L Chloride 107 (100-108) mmol/L Carbon Dioxide 24 (21-32) mmol/L Anion Gap 8.6 (5.0-14.0) mmol/L BUN 13 D (7-18) mg/dL Creatinine 0.9 (0.6-1.0) mg/dL Est Cr Clr Drug Dosing 76.30 mL/min Estimated GFR (MDRD) > 60 (>60) Glucose 105 (74-106) mg/dL Calcium 8.6 (8.5-10.1) mg/dL Total Bilirubin 0.5 (0.2-1.0) mg/dL AST 13 L (15-37) U/L ALT 26 (12-78) U/L Alkaline Phosphatase 81 (46-116) U/L Total Protein 7.0 (6.4-8.2) g/dL Albumin 3.7 (3.4-5.0) g/dL Globulin 3.3 (2.3-3.5) g/dL Albumin/Globulin Ratio 1.1 L (1.2-2.2) Lipase 136 (73-393) U/L Meds: Medications Discontinued Medications Generic Name Dose Route Start Last Admin Trade Name Freq PRN Reason Stop Dose Admin Acetaminophen 1,000 mg 09/09/17 18:20 09/09/17 18:29 Tylenol Extra Strength PO 09/09/17 18:21 1,000 mg ONETIME ONE Administration Sodium Chloride 80 mls @ 3 mls/sec 09/09/17 19:00 09/09/17 19:20 Normal Saline IV 3 mls/sec ASDIRECTED NITIN Administration Iopamidol 150 ml 09/09/17 19:00 09/09/17 19:20 Isovue-300 (61%) IV 150 ml . DIRECTED NITIN Administration Ketorolac Tromethamine 30 mg 09/09/17 19:32 09/09/17 19:43 Toradol IVPUSH 09/09/17 19:33 30 mg ONETIME ONE Administration Lorazepam 1 mg 09/09/17 20:29 09/09/17 20:36 Ativan PO 09/09/17 20:30 1 mg ONETIME ONE Administration Ondansetron HCl 4 mg 09/09/17 18:38 09/09/17 18:48 Zofran Odt PO 09/09/17 18:39 4 mg ONETIME ONE Administration Sodium Chloride 10 ml 09/09/17 19:00 09/09/17 19:46 Saline Flush FLUSH 10 ml ASDIRECTED PRN Administration Keep Vein Open - Re-Assessments/Exams Free Text/Narrative Re-Assessment/Exam: 09/09/17 19:35 CBC CMP and lipase were obtained. Patient was asking for something for pain so she was given 1000 mg of Tylenol. She then asked for something for nausea and was given 4 mg of sublingual Zofran. She became angry that she wasn't getting something stronger for pain. Her labs all returned normal. She continued to be tearful and demand more for pain so CT with IV contrast of the abdomen and pelvis was obtained. Reviewing her records this is a typical course of an ER visit for her where she is very dramatic and symptomatic but physically vitals are normal and workups are negative. Patient returned from CT asking for something for pain. A quick review of the CT scan showed no abnormality so she was given 30 mg of IV Toradol pending radiology confirmation. 09/09/17 19:58 CT completely normal. 09/09/17 20:01 Patient was discharged with a diagnosis of functional or irritable bowel pain. She can continue her regular medications. 09/09/17 20:31 Patient continued to refuse to leave until she got something more for pain. I agreed to give her 1 mg of by mouth Ativan to take when she got home which should help settle her anxiety and irritable bowel. I don't feel comfortable supplying her with anymore medications. She became more upset and started telling me that I "didn't listen to her last time when her foot was broken". I reviewed that record and she arrived already in a walking boot, was getting podiatry care and was just asking for pain medications. I actually supplied her with 15 doses of Tylenol No. 3. I reviewed her podiatry notes tonxavier, and she was told several times after an MRI of the foot that she had no fracture and just had a bruised little toe. She left asking for paper work to file a complaint, she did not appear to be in any significant discomfort when she left. Departure - Departure Time of Disposition: 21:00 Disposition: Home, Self-Care 01 Condition: Good Clinical Impression: IBS (irritable bowel syndrome) Qualifiers: Irritable bowel syndrome type: with constipation Qualified Code(s): K58.1 - Irritable bowel syndrome with constipation - Discharge Information Instructions: Abdominal Pain, Adult, [id number] Referrals: Leah Agrawal PA [Primary Care Provider] - Forms: ED Department Discharge Care Plan Goals: Drink lots of water and continue your regular medications. Recheck with your regular doctor tomorrow if not improving. - My Orders Last 24 Hours: My Active Orders 09/09/17 18:55 Abdomen Pelvis w Cont [CT] Stat - Assessment/Plan Last 24 Hours: My Active Orders 09/09/17 18:55 Abdomen Pelvis w Cont [CT] Stat
[2017-09-09] MEDS ORDERED: Iopamidol 612 MG/ML 150 ML Bottle IV SCH (19:00)
[2017-09-09] MEDS ORDERED: Sodium Chloride 0.9% 80 ML IV SCH (19:00)
[2017-09-09] MEDS: Sodium Chloride 0.9% 10 ML Syringe FLUSH PRN ×2 (19:20→19:46)
[2017-09-09] MEDS ORDERED: Ketorolac 30 MG/ML SDV IVPUSH ONE (19:32)
[2017-09-09] MEDS ORDERED: LORazepam 1 MG Tab PO ONE (20:29)
== END 2017-09-09 20:58 | disposition home or self-care (01) ==
LOC: JP.ED 16:33
DX: K58.1 Irritable bowel syndrome with constipation (principal); J45.909 Unspecified asthma, uncomplicated; F41.9 Anxiety disorder, unspecified; Z79.899 Other long term (current) drug therapy; Z91.018 Allergy to other foods; Z88.8 Allergy status to other drugs, medicaments and biological substances; Z88.1 Allergy status to other antibiotic agents; Z88.0 Allergy status to penicillin; Z88.2 Allergy status to sulfonamides; Z91.010 Allergy to peanuts; Z91.09 Other allergy status, other than to drugs and biological substances
CPT/HCPCS: 36415; 74177; 80053; 83690; 85025; 96374; 99284; A9270; J1885; J7030; J7050

== ENCOUNTER 2017-09-20 06:54 | Day surgery (SDC) | payer OTHER ==
[2017-09-20] MEDS ORDERED: Lactated Ringers 1,000 ML IV SCH (07:00)
[2017-09-20] MEDS ORDERED: Propofol 200 MG/20 ML SDV ONE (08:11)
[2017-09-20] MEDS ORDERED: fentaNYL 100 MCG/2 ML SDV ONE (08:12)
[2017-09-20] MEDS ORDERED: Ondansetron 4 MG/2 ML SDV ONE (08:19)
[2017-09-20 09:46] VITALS: BP 148/91
--- NOTE | 2017-09-20 10:51 | OR ---
DATE OF PROCEDURE: 09/20/2017 PREOPERATIVE DIAGNOSES: 1. Epigastric pain. 2. Gastroesophageal reflux disease. POSTOPERATIVE DIAGNOSES: 1. Epigastric pain. 2. Gastroesophageal reflux disease. 3. Single area of erythema in the antrum. PROCEDURES PERFORMED: Esophagogastroduodenoscopy with antral biopsies for CLOtest and for pathology to look for Helicobacter pylori, biopsy of gastroesophageal junction. SURGEON: Francisco J Chaudhry MD. ANESTHESIA: IV anesthesia with monitored anesthesia care. INDICATION: This 27-year-old white female is referred for an upper endoscopy because of, what she describes as, stomach pain, and the chart says she has gastroesophageal reflux disease. I counseled her for upper endoscopy with possible biopsy, including risks and alternatives, and she gave her informed consent to proceed. DESCRIPTION OF PROCEDURE: The patient was placed in the left lateral decubitus position. IV anesthesia was administered by the Anesthesia Service. Time-out was held. The flexible video Olympus upper endoscope was passed through her mouth, down her esophagus, and into her stomach. The scope was easily passed through the pylorus, into the duodenum , reaching its third portion. The scope was then slowly withdrawn, examining the mucosa throughout. The duodenal mucosa appeared unremarkable. The scope was brought up through the pylorus. There was a single area of erythema in the antrum consistent with gastritis. We obtained biopsies of the antrum for CLOtest and for pathology to look for Helicobacter pylori. The scope was retroflexed. The most proximal stomach appeared unremarkable. The scope was straightened and brought up through the GE junction. This was abnormal in that the Z-line was not straight, and there were areas of inflammation present consistent with gastroesophageal reflux disease. We obtained multiple, totalling 6, biopsies of the gastroesophageal junction. The scope was then brought proximally up through remainder of the esophagus, which otherwise appeared unremarkable and it was removed. She tolerated the procedure well. Francisco J Chaudhry MD /[id number] MTDD
== END 2017-09-20 10:00 | disposition home or self-care (01) ==
LOC: JP.SDS 06:54
PROVIDERS: ATTEND Surgery
DX: R10.13 Epigastric pain (principal); K21.9 Gastro-esophageal reflux disease without esophagitis; K22.8 Other specified diseases of esophagus; K31.9 Disease of stomach and duodenum, unspecified; J45.909 Unspecified asthma, uncomplicated; E66.9 Obesity, unspecified; K58.9 Irritable bowel syndrome, unspecified
CPT/HCPCS: 43239; 81025; 87081; 88305; 88342; J1642; J2405; J2704; J3010; J7120

== ENCOUNTER 2017-12-17 08:39 | Day surgery (SDC) | payer OTHER ==
[2017-12-17] MEDS: Sodium Chloride 0.9% 1,000 ML IV SCH (09:36)
[2017-12-17] MEDS: ceFAZolin 2 GM in Premix Bag 1 BAG IV ONE (10:26)
[2017-12-17] MEDS ORDERED: Propofol 200 MG/20 ML SDV ONE ×4 (10:40→12:00)
[2017-12-17] MEDS ORDERED: fentaNYL 100 MCG/2 ML SDV ONE (10:40)
[2017-12-17] MEDS ORDERED: Ondansetron 4 MG/2 ML SDV ONE (10:44)
[2017-12-17] MEDS: Bupivacaine 0.5% 50 ML MDV ONE (10:52)
[2017-12-17] MEDS: Lidocaine 1% with EPINEPHrine 1:100,000 50 ML MDV ONE (10:52)
[2017-12-17] MEDS: LORazepam 2 MG/ML SDV IV ONE (11:48)
[2017-12-17 13:08] VITALS: BP 137/70
--- NOTE | 2017-12-20 08:22 | OR ---
DATE OF PROCEDURE: 12/17/2017 PROCEDURE: Replacement of left subclavian Port-A-Cath. COMPLICATIONS: None. [employer]: None. ANESTHESIA: MAC/local. INDICATIONS: A pleasant female, who requires chronic IV use, requiring the placement of her Port-A-Cath due to nonfunction. COMPLICATION: None. PREOPERATIVE DIAGNOSIS: Port-A-Cath replacement. POSTOPERATIVE DIAGNOSIS: Port-A-Cath replacement. PROCEDURE IN DETAIL: The patient was placed in supine position. The previous skin incision was anesthetized with 1% lidocaine. This was then carried down with electrocautery to the previous port site. This was readily identified, mobilized, and removed from the tubing. Good blood flow was noted from the tubing. Therefore, this is most likely not the culprit. This had migrated a little bit into the right atrium. Therefore, this was pulled back to remove the tubing from the heart. This was then replaced with the black and clear attachment device and then sewn in three locations with 3-0 Vicryl. A Hansen needle was used multiple times to ensure draw back and injection was possible of the port. The skin was then closed with 3-0 Vicryl and 4-0 Vicryl and Dermabond was applied and then checked again. The patient tolerated the procedure well. Ebenezer Pope MD /[id number]
== END 2017-12-17 13:30 | disposition home or self-care (01) ==
LOC: JP.SDS 08:39
PROVIDERS: ATTEND Surgery
DX: T82.598A Other mechanical complication of other cardiac and vascular devices and implants, initial encounter (principal); J45.909 Unspecified asthma, uncomplicated; E66.01 Morbid (severe) obesity due to excess calories; Z68.41 Body mass index [BMI] 40.0-44.9, adult; M06.9 Rheumatoid arthritis, unspecified; F33.0 Major depressive disorder, recurrent, mild; I73.00 Raynaud's syndrome without gangrene; F41.1 Generalized anxiety disorder; K58.9 Irritable bowel syndrome, unspecified; Z79.899 Other long term (current) drug therapy
CPT/HCPCS: 36415; 80048; 81025; 85027; C1788; C1894; J0690; J1642; J2060; J2405; J2704; J3010; J3490; J7030

== ENCOUNTER 2022-02-06 07:42 | Day surgery (SDC) | payer OTHER ==
[~2022-02-06 07:42] MED LIST: Midazolam 1 MG/ML 2 ML SDV ONE; Propofol 200 MG/20 ML SDV ONE; fentaNYL 50 MCG/ML SDV ONE
[2022-02-06] MEDS ORDERED: Sodium Chloride 0.9% 1,000 ML IV SCH (08:30)
[2022-02-06] MEDS ORDERED: Propofol 200 MG/20 ML SDV ONE (09:57)
[2022-02-06] MEDS ORDERED: Ondansetron 4 MG Tab.DIS PO ONE (10:59)
[2022-02-06 11:01] VITALS: BP 137/75; PULSE 94
== END 2022-02-06 11:17 | disposition home or self-care (01) ==
LOC: JP.SDS 07:42
PROVIDERS: ATTEND Surgery
DX: Z12.11 Encounter for screening for malignant neoplasm of colon (principal); Z53.09 Procedure and treatment not carried out because of other contraindication; K21.9 Gastro-esophageal reflux disease without esophagitis; K29.70 Gastritis, unspecified, without bleeding; K63.89 Other specified diseases of intestine; Z88.0 Allergy status to penicillin; Z88.8 Allergy status to other drugs, medicaments and biological substances; Z88.2 Allergy status to sulfonamides; Z91.010 Allergy to peanuts; Z88.1 Allergy status to other antibiotic agents; Z91.048 Other nonmedicinal substance allergy status; Z88.4 Allergy status to anesthetic agent; Z79.899 Other long term (current) drug therapy
CPT/HCPCS: 43239; 45378; J1642; J2704; J3010; J7030; Q0162; J2250

== ENCOUNTER 2023-02-26 05:54 | Day surgery (SDC) | payer MEDICAID ==
[2023-02-26] MEDS: Lactated Ringers 1,000 ML IV SCH (06:41)
[2023-02-26] MEDS ORDERED: fentaNYL 100 MCG/2 ML SDV ONE (07:15)
[2023-02-26] MEDS ORDERED: Propofol 200 MG/20 ML SDV ONE (07:15)
[2023-02-26] MEDS ORDERED: Ondansetron 4 MG/2 ML SDV ONE (07:50)
[2023-02-26] MEDS: Ondansetron 4 MG/2 ML SDV IVPUSH ONE (08:48)
[2023-02-26] MEDS: Acetaminophen 500 MG Tab PO ONE (09:05)
[2023-02-26 10:56] VITALS: BP 138/80; PULSE 67
== END 2023-02-26 09:50 | disposition home or self-care (01) ==
LOC: JP.SDS 05:54
PROVIDERS: ATTEND Student in an Organized Health Care Education/Training Program
DX: K63.5 Polyp of colon (principal); K29.50 Unspecified chronic gastritis without bleeding; K29.80 Duodenitis without bleeding; G47.33 Obstructive sleep apnea (adult) (pediatric); J45.909 Unspecified asthma, uncomplicated; K21.9 Gastro-esophageal reflux disease without esophagitis; E66.9 Obesity, unspecified; Z68.42 Body mass index [BMI] 45.0-49.9, adult; Z88.0 Allergy status to penicillin; Z88.2 Allergy status to sulfonamides; Z91.018 Allergy to other foods; Z91.010 Allergy to peanuts; Z91.048 Other nonmedicinal substance allergy status; Z88.1 Allergy status to other antibiotic agents; Z88.8 Allergy status to other drugs, medicaments and biological substances
CPT/HCPCS: 81025; 88305; A9270-GY; C1751; J1642; J2405; J2704; J3010; J7120